=== PATIENT | male | born 1970 | race Caucasian/White ===

== ENCOUNTER → 2024-05-29 | Outpatient (CLI) | payer BC, SELFPAY ==
[2024-05-29 09:56] LABS: Hematocrit 49.4 % (40-54); Hemoglobin 16.9 g/dL (13.0-16.5); Mean Corp Hgb Conc 34.2 g/dL (32-36); Mean Corpuscular Hgb 29.9 pg (27.0-32.0); Mean Corpuscular Volume 87.3 fL (80-94); Mean Platelet Vol. 9.8 fl (6.2-12.0); Platelet Count 356 K/mm3 (150-450); RBC Distribution Width CV 13.1 % (11.6-14.6); RBC Distribution Width SD 41.8 fl (35.1-43.9); Red Blood Count 5.66 M/mm3 (4.6-6.2); White Blood Count 10.8 K/mm3 (4.4-11.0)
[2024-05-29 10:33] LABS: Anion Gap 4 (5-15); BUN 14 mg/dL (7-18); BUN/Creat Ratio 13.3 RATIO (10-20); Calcium,Total 8.9 mg/dL (8.5-10.1); Chloride 105 mmol/L (98-107); Creatinine, Serum 1.05 mg/dL (0.70-1.30); EST Glomerular Filtration Rate 78 mL/min (>60); Est Glom Filt Rate - Afr Amer 94 mL/min (>60); Glucose 147 mg/dL (74-106); PSA,Total - Annual Screen 0.65 ng/mL (0.00-4.00); Potassium 3.8 mmol/L (3.5-5.1); Sodium Level 138 mmol/L (136-145)
== END | disposition home or self-care (01) ==
PROVIDERS: PCP Family Medicine; Referring Provider Urology; Visit Provider Urology
DX: Z12.5 Encounter for screening for malignant neoplasm of prostate (principal)

== ENCOUNTER 2024-06-16 07:49 | Inpatient (IN) | payer BC, SELFPAY ==
--- NOTE | 2024-06-02 16:12 | PAT.ANE_ITS ---
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 When Was Last Pacemaker Check QUESTION #4 FULL TEXT: You/Your Family Experience fever (hyperthermia) with Anesthesia Last Oral Intake Last Oral intake: Last Oral Intake NPO since Meds taken in AM with sips of water? Meds patient instructed to take am of surgery PONV PONV - football scout: PONV - football scout Female No 06/02/24 13:12 HX of Motion Sickness No 06/02/24 13:12 HX of N/V After Surgery No 06/02/24 13:12 Non-Smoker No 06/02/24 13:12 Duration of Surgery greater Yes 06/02/24 13:12 than 60 minutes Number of Risk Factors 1 06/02/24 13:12 PONV Score Low Risk 06/02/24 13:12 Respiratory Assessment Respiratory Assessment - football scout: Respiratory Tract Infection Hx - football scout Hx Respiratory Tract Infection No 06/02/24 13:12 STOP Sleep Apnea STOP Sleep Apnea - football scout: STOP Sleep Apnea - football scout Hx Hypertension Yes: PER PT, CONTROLLED ON 06/02/24 13:12 MEDS Hx Sleep Apnea Yes 06/02/24 13:12 CPAP No 06/02/24 13:12 BIPAP No 06/02/24 13:12 Do you snore loudly (louder than talking or can be heard Do you often feel tired/ fatigued/ sleepy during daytime? Has anyone observed you stop breathing during sleep? STOP Results Positive 06/02/24 13:12 QUESTION #5 FULL TEXT : Do you snore loudly (louder than talking or can be heard through closed doors)? Tobacco Use History Tobacco Use History - football scout: Tobacco Use History - football scout Tobacco Use Smoking Status Current every day smoker 06/02/24 13:12 Hx Tobacco Use Yes 06/02/24 13:12 Years Smoking Packs Smoked per Day Smoking Cessation Date was within the last 15 years Hx Smoking Cessation Date Hx Smoking Cessation Counseling Hematologic Medial History Hematologic Hx - football scout: Hematologic Medical Hx - personnel officer Hx of Blood Transfusion No 06/02/24 13:12 Hx of Transfusion in last 3 No 06/02/24 13:12 Months Date of Last Transfusion (if within last 3 months) Ever experience any problems No 06/02/24 13:12 with transfusion(s)? Specify any problems Hx of Preganancy in last 3 N/A 06/02/24 13:12 Months Nurse Filling Out Transfusion MGRIFFITH 06/02/24 13:12 & Questions: Date: 06/02/24 06/02/24 13:12 Time: 13:14 06/02/24 13:12 Patient unable to answer at this time (ie. confused, unrespo /Reproduction History /Reproductive History - football scout: /Reproductive Hx- football scout Hx Now Gestational Age (in weeks): EDC: Hx Hx Para Hx [facility] Medical History (Updated 06/02/24 @ 13:24 by Shefali Florian) Wears glasses History of MRSA infection Alcohol use Arthritis Injury of head and neck Heartburn Smoker History of rheumatic fever History of cardiac murmur Home Medications ?Medication ?Instructions ?Recorded ?Last Taken ?Type lisinopril 20 1 tab PO DAILY 06/02/24 Unknown History mg-hydrochlorothiazide 12.5 mg tablet Allergy/AdvReac Type Severity Reaction Status Date / Time adhesive tape AdvReac RASH Verified 06/02/24 13:09 Surgical History (Updated 06/02/24 @ 13:12 by Shefali Florian) History of medial meniscus repair of right knee History of cholecystectomy Social History Smoking Status: Current every day smoker tobacco type: e-cigarettes Audit: Pertinent Findings Pertinent Findings EKG Perinent findings: May 17, 2024. Normal sinus rhythm. Incomplete right bundle branch block. Compared to EKG of October 2005 premature supraventricular complexes are no longer seen. Recommendation Anesthesia Recommendation Anesthesia recommendation: OPTIMIZED for anesthesia
[2024-06-16] VITALS (20 sets, daily range): BP systolic 108–156; BP diastolic 72–104; PULSE 76–100; RESP 14–18; TEMP 36–37.1; O2SAT 90–97; BMI 40.3; BMI 39.1
--- NOTE | 2024-06-16 05:16 | RAD_ITS ---
PROCEDURE: CHEST 1 VIEW REASON FOR EXAM: Preop. TECHNIQUE: Single frontal image of the chest. COMPARISON: None. FINDINGS: Heart and mediastinum are normal in size and configuration. The lungs are clear. Aorta is atherosclerotic and mildly tortuous. No pleural effusions, pneumothorax, or pleural thickening. The bones are unremarkable. RAD/Chest 1 View IMPRESSION: No active cardiopulmonary disease. Reading Location: [facility]
[2024-06-16] MEDS: 0.9% Normal Saline (1000mL) 1,000 ML 15 ML IV (06:16)
--- NOTE | 2024-06-16 07:25 | PCM.PRE.AN2 ---
ASA Classification* ASA Classification ASA Classification: 3 Assessment & Plan Anesthesia* Anesthesia Assessment Anesthesia Assessment: Discussed sedation and/or anesthesia options, risks, benefits, and alternatives with patient/parents/legal guardian/POA. Questions invited. The patient/parents/legal guardian/POA seems to understand and agrees to proceed with anesthesia plan. Reviewed the physical assessment, medical history, allergy history and patient home medications list prior to surgery/procedure/anesthetic and documented any changes. Performed airway and anesthesia risk assessments. Anesthesia Type Anesthesia Type: General Anesthesia Focused Assessment* Pulse Rate: 96 Blood Pressure: 125/87 Respiratory Rate: 16 Pulse Ox: 96 Airway Assessment Mouth opens: >3 cm Mallampati Score: II Focused Labs Anesthesia Preop lab: CBC WBC 10.8 K/mm3 (4.4-11.0) 05/29/24 09:05/29/24 RBC 5.66 M/mm3 (4.6-6.2) 05/29/24 09:05/29/24 Hgb 16.9 g/dL (13.0-16.5) H 05/29/24 09:25 05/29/24 Hct 49.4 % (40-54) 05/29/24 09:25 05/29/24 Plt Count 356 K/mm3 (150-450) 05/29/24 09:25 05/29/24 CHEMISTRY Potassium 3.8 mmol/L (3.5-5.1) 05/29/24 09:25 05/29/24 Sodium 138 mmol/L (136-145) 05/29/24 09:25 05/29/24 BUN 14 mg/dL (7-18) 05/29/24 09:25 05/29/24 Creatinine 1.05 mg/dL (0.70-1.30) 05/29/24 09:25 05/29/24 Glucose 147 mg/dL (74-106) H 05/29/24 09:25 05/29/24 COAG Pre-Assessment Diagnosis/Proposed Procedure Planned Operative Procedure(s): (L) Laparoscopic Robotic Radical Nephrectomy Anesthesia History 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 When Was Last Pacemaker Check QUESTION #4 FULL TEXT: You/Your Family Experience fever (hyperthermia) with Anesthesia Last Oral Intake Last Oral intake: Last Oral Intake NPO since 19:30 06/16/24 06:00 Meds taken in AM with sips of No 06/16/24 06:00 water? Meds patient instructed to take am of surgery PONV PONV - facility maintenance mechanic: PONV - facility maintenance mechanic Female No 06/02/24 13:12 HX of Motion Sickness No 06/02/24 13:12 HX of N/V After Surgery No 06/02/24 13:12 Non-Smoker No 06/02/24 13:12 Duration of Surgery greater Yes 06/02/24 13:12 than 60 minutes Number of Risk Factors 1 06/02/24 13:12 PONV Score Low Risk 06/02/24 13:12 Height & Weight Height & Weight: Anesthesia: Height & Weight Height 5 ft 8 in 06/16/24 06:00 Weight: 120.202 kg 06/16/24 06:00 Body Mass Index (BMI) 40.3 06/16/24 06:00 Respiratory Assessment Respiratory Assessment - facility maintenance mechanic: Respiratory Tract Infection Hx - facility maintenance mechanic Hx Respiratory Tract Infection No 06/02/24 13:12 STOP Sleep Apnea STOP Sleep Apnea - facility maintenance mechanic: STOP Sleep Apnea - facility maintenance mechanic Hx Hypertension Yes: PER PT, CONTROLLED ON 06/02/24 13:12 MEDS Hx Sleep Apnea Yes 06/02/24 13:12 CPAP No 06/02/24 13:12 BIPAP No 06/02/24 13:12 Do you snore loudly (louder than talking or can be heard Do you often feel tired/ fatigued/ sleepy during daytime? Has anyone observed you stop breathing during sleep? STOP Results Positive 06/02/24 13:12 QUESTION #5 FULL TEXT : Do you snore loudly (louder than talking or can be heard through closed doors)? Tobacco Use History Tobacco Use History - facility maintenance mechanic: Tobacco Use History - facility maintenance mechanic Tobacco Use Smoking Status Current every day smoker 06/02/24 13:12 Hx Tobacco Use Yes 06/02/24 13:12 Years Smoking Packs Smoked per Day Smoking Cessation Date was within the last 15 years Hx Smoking Cessation Date Hx Smoking Cessation Counseling Hematologic Medial History Hematologic Hx - facility maintenance mechanic: Hematologic Medical Hx - consulting networking engineer Hx of Blood Transfusion No 06/02/24 13:12 Hx of Transfusion in last 3 No 06/02/24 13:12 Months Date of Last Transfusion (if within last 3 months) Ever experience any problems No 06/02/24 13:12 with transfusion(s)? Specify any problems Hx of Preganancy in last 3 N/A 06/02/24 13:12 Months Nurse Filling Out Transfusion MGRIFFITH 06/02/24 13:12 & Questions: Date: 06/02/24 06/02/24 13:12 Time: 13:14 06/02/24 13:12 Patient unable to answer at this time (ie. confused, unrespo /Reproduction History /Reproductive History - facility maintenance mechanic: /Reproductive Hx- facility maintenance mechanic Hx Now Gestational Age (in weeks): EDC: Hx Hx Para Hx Section SAB Active Medications Active Medications: Current Medications Generic Name Dose Route Start Last Admin Trade Name Freq PRN Reason Stop Dose Admin Cefazolin Sodium 3 gm/ N/A 30 mls @ 600 mls/hr 06/16/24 07:30 IV 06/16/24 07:32 PREOP ONE Sodium Chloride 1,000 mls @ 15 mls/hr 06/16/24 05:35 06/16/24 06:16 IV 06/21/24 18:54 15 mls/hr .Q48H NANCY Administration Protocol PFSH Medical History Wears glasses History of MRSA infection Alcohol use Arthritis Injury of head and neck Heartburn Smoker History of rheumatic fever History of cardiac murmur Home Medications ?Medication ?Instructions ?Recorded ?Last Taken ?Type lisinopril 20 1 tab PO DAILY 06/02/24 06/15/24 History mg-hydrochlorothiazide 12.5 mg tablet Allergy/AdvReac Type Severity Reaction Status Date / Time adhesive tape AdvReac RASH Verified 06/16/24 05:54 Surgical History History of medial meniscus repair of right knee History of cholecystectomy Social History Smoking Status: Current every day smoker tobacco type: e-cigarettes Review of Systems (Anesthesia) ROS Narrative System reviewed and no additional complaints, except as documented.
--- NOTE | 2024-06-16 07:30 | KID_PTH ---
PATIENT: JAKUB SANDERS LOC: [facility] U#:[id number] AGE/SX: 54/M ROOM: [facility] [place]06/16/[address]: Dr. Dru Godwin MD : 1970 BED: 1 DIS: 06/20/2024 SPEC #: [id number] RECD: 06/16/24 10:34 STATUS: EDITH DUMONT #: [id number] LOVE: 06/16/24 07:[address]: Dru Godwin DEPT: SURGICAL PATHOLOGY RECD BY: Holden Eaton ENTERED: 06/16/24 10:51 SP TYPE: KIDNEY OTHR DR: Dr. 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 See cancer summary in the comment section. SJ.mr 06/21/2024 COMMENT KIDNEY CANCER SUMMARY Procedure - Radical nephrectomy Specimen laterality - Left Tumor site - Upper, middle and lower, >90% of the kidney. Tumor size - 12 x 10.5 x 8cm Tumor focality - Unifocal Histologic type - Clear cell renal cell carcinoma Sarcomatoid features - Not identified Rhabadoid features - Not identified Histologic grade - grade 2 (WHO/ISUP grade/Sigrid grade) Tumor necrosis - Present, focally about 10% of the tumor volume. Tumor extension - Tumor extends into perinephric adipose tissue (beyond renal capsule) Margins - Margins are uninvolved by invasive carcinoma Lymphvascular invasion - Not identified Regional lymph nodes - No lymph nodes submitted or found Distal metastases- Not applicable Pathologic findings, non-neoplastic kidney. Mild interstitial chronic inflammation. Additional pathologic findings- None PATHOLOGIC STAGE: pT3a pNx pMx The above summary is in compliance with [employer] [place] [employer] (CAP) Cancer Protocols Checklist and [place] Joint Committee on Cancer (AJCC), Staging Manual, 8th Ed. Case has been reviewed in consultation with Dr. Patrick who concurs with the above diagnosis. IDC:FA MICROSCOPIC DESCRIPTION Slides are reviewed. GROSS DESCRIPTION The specimen consists of a left kidney containing a mass and is surrounded by an irregular envelope of fibroadipose tissue. The attached fibroadipose tissue measures up to 8cm in width. Neoplasm extend into perirenal fat and is not present at the soft tissue line of resection. The specimen weighs 2500gm and measures 34 x 20 x 10 cm. The kidney measures 14 x 10 x 8cm. The mass involves most of the kidney (90%). Dissection of the renal veins, particularly those draining the area of the mass does not show intravascular presence of the neoplasm. On section, the tumorous mass is ovoid and measures 12 x 10.5 x 8 cm in diameter. It is composed of tiuajf-bti-nobhx tissue in which there is a focal area of hemorrhage, necrosis and softening. Focal area of the tumor shows feldman-white indurated cut surfaces. The tumor does not invade into the renal pelvis, renal sinus. The tumor is sharply demarcated from the renal parenchyma which appears essentially unremarkable. Satellite nodules of tumor are not present in the renal tissue. Adrenal gland is not present. A 15cm segment of urethra is present and essentially unremarkable. Global Cto sections are submitted in 20 cassettes as follows: 1- ureteral and vascular resection margins, 2- more section of ureter, 3- uninvolved kidney, 4- renal sinus, renal pelvis and adjacent kidney tissue, 5-20- tumor (cassettes 5&6 contain the tumor in the perirenal adipose tissue). Sections are submitted after additional fixation. 06/19/2024 TC:0 CPT:59187
--- NOTE | 2024-06-16 07:53 | PCM.HP.STD ---
HPI - General General Date of Service: 06/16/24 Chief Complaint: Left renal mass HPI Narrative JAKUB SANDERS, is a 54 M who presents for a radical left nephrectomy for a large left renal mass PFSH Medical History Wears glasses History of MRSA infection Alcohol use Arthritis Injury of head and neck Heartburn Smoker History of rheumatic fever History of cardiac murmur Home Medications ?Medication ?Instructions ?Recorded ?Last Taken ?Type lisinopril 20 1 tab PO DAILY 06/02/24 06/15/24 History mg-hydrochlorothiazide 12.5 mg tablet docusate sodium 100 mg capsule 100 mg PO BID #20 caps 06/16/24 Unknown Rx (Colace) oxycodone 5 mg tablet 5 mg PO Q6H PRN pain 3 days #14 06/16/24 Unknown Rx tabs Allergy/AdvReac Type Severity Reaction Status Date / Time adhesive tape AdvReac RASH Verified 06/16/24 05:54 Surgical History History of medial meniscus repair of right knee History of cholecystectomy Social History Smoking Status: Current every day smoker tobacco type: e-cigarettes Vital Signs Vital Signs Vital Signs: 06/16/24 05:55 06/16/24 06:00 06/16/24 07:26 Pulse Rate 96 96 Respiratory Rate 16 16 Respiratory Pattern Normal Blood Pressure 125/87 H 125/87 H Blood Pressure Mean 99 Blood Pressure Source Monitor Blood Pressure Position Semi-Fowlers Blood Pressure Location Right Arm Pulse Ox 96 96 Oxygen Delivery Method Room Air Weight Weight: 120.202 kg Body Mass Index (BMI) 40.3 Results Lab / Micro Data Labs: Laboratory Results - last 24 hr 06/16/24 06:10: Blood Type Cancelled, Antibody Screen Cancelled 06/16/24 06:37: Blood Type O POSITIVE, Antibody Screen NEGATIVE Imaging Radiology Impression Chest X-Ray 06/16/24 05:16 IMPRESSION: No active cardiopulmonary disease. Reading Location: [facility]
--- NOTE | 2024-06-16 07:53 | PCM.DC ---
Discharge Instructions Diet Discharge Diet: No restrictions DC O2, CPAP, BIPAP needs Home O2 Discharge instructions: No Dressing / Incision Discharge Activity: Return to Normal Activity and May Not Drive (while taking narcotic pain medications.) Additional Activity Instructions:: no lifting Dressing / Incision Call your doctor if you observe: Fever of 101 or Higher Suture Line Care: Avoid Pulling/Pushing and Avoid Pinching/Bending Follow Up Care Please Follow Up With: Dru Godwin MD When: Call [phone] for an appointment Test Results: Test results from this visit will be discussed in further detail at your follow-up appointment, if applicable. Discharge Plan Admission Primary Reason for Your Visit: left radical nephrectomy Attending Provider: Dru Godwin Primary Care Provider: Jordon Lowry Instructions Print Language: Cambodian Discharge Orders/Prescriptions Prescriptions: New oxycodone 5 mg tablet 5 mg PO Q6H PRN (Reason: pain) 3 Days Qty: 14 0RF docusate sodium [Colace] 100 mg capsule 100 mg PO BID Qty: 20 0RF No Action lisinopril-hydrochlorothiazide 20-12.5 mg tablet 1 tab PO DAILY Other Ambulatory Orders: Chest PA and Lateral (Routine) Timeframe: 20240616 Facility: [facility] - Location: [facility] Ordered By: Dr. Dru Godwin Referrals / Follow Up: Dru Godwin MD [Med Staff - Active Staff] - Jordon Lowry MD [Primary Care Provider] - Disposition Disposition (needs filled in before D/C Order can be placed): Home, Self Care
[2024-06-16] MEDS: Cefazolin 3 GM in Syringe 1 EACH IV (07:55)
[2024-06-16] MEDS: Bupivacaine Mpf 0.5% 30 ML VIAL (08:15)
--- NOTE | 2024-06-16 10:22 | PCM.POST.ANE ---
Anesthesia: Postop Eval I Current Vital Signs Temperature: 98.6 F Pulse Rate: 82 Blood Pressure: 113/85 Respiratory Rate: 16 Pulse Ox: 96 Oxygen Delivery Method: Simple Mask Oxygen Flow Rate (L/min): 6 Assessment Airway patent: Yes Spontaneous unlabored respirations: Yes Mental status: Awake and Calm nausea: No Vomiting: No Anesthesia Complication: No Fluid Hydration Crystalloid volume administer (ml): 1,600 Total IV fluid infused: 1,600 Progress Note Anesthesia document: Postop Eval 1 completed: Yes
--- NOTE | 2024-06-16 10:34 | OP.PCM_ITS ---
Operative Report (Standard) Operative Information Date of Procedure: 06/16/24 Pre-Operative Diagnosis: Large left renal mass Post-Operative Diagnosis: The same Surgery/Procedure Performed: Left radical nephrectomy watch crystal edge grinder: Yes Truck Driver Helper: Paolo Philippe Tasks completed by account assistant: Opening, Closing, Opening & closing, Harvesting grafts, Dissecting tissue, Removing tissue, Implanting device, Altering tissue, Insert Trochanter, Hemostasis: Clamp, Hemostasis: Tie, Hemostasis: Electrocautery, Trocar, Retracting and Other Type of Anesthesia: General RN Documented Start/Stop Times: Operation Date: 06/16/24 07:30 Case Time Into Pre-Op 06/16/24 05:32 Out of Pre-Op 06/16/24 07:29 Anesthesia Start 06/16/24 07:35 Into Room 06/16/24 07:35 Procedure Start 06/16/24 08:14 Procedure Start Time: 08:14 Procedure Stop Time: 10:36 Select all DRAINS/GRAFTS/IMPLANTS that apply: Drains Drain details: denise Estimated Blood Loss: 80cc Specimen collected: Yes Description of specimen(s) removed: left renal mass Description of surgery: 54-year-old male with a very large left renal mass presents today for left radical nephrectomy. Patient was taken back to the operating room after smooth induction of anesthesia he was placed in lateral position Denise catheter was in place we then the abdomen was prepped and draped in usual sterile fashion placed my ports into the abdomen after the CO2 gas was obtained for the pneumoperitoneum we then docked the robot and proceeded with the dissection I then reflected the fat and mid mesenteric fat and colon off of the kidney this was an extremely large kidney made the dissection very difficult. Also patient was very obese. And also the mass was really large. After dissecting the colon off the kidney then I used a Raptor to retract the kidney cephalad and then I dissected inferior I found the tail of the drought's fascia got underneath the tail started working my way underneath drought's fascia until I encountered the hilum I then encountered the renal vein it was a branching renal vein and then it behind the vein there was a large renal artery and in front of vein there is a small renal artery I first clipped a small renal artery and from the vein and then clipped and ligated the large renal artery and then finally we clipped and likely the renal vein we then used a stapler to clip and staple underneath the gonadal and also we stapled underneath the adrenal so the adrenal went with the specimen we did not spare the adrenal and then we dissected underneath the kidney off the lateral sidewall and then dissected the entire kidney free up the lateral sidewall. Using copious amount of clips and cauterization to control bleeding. Finally the kidney was completely freed up the robot was undocked I tested the put push to put the renal mass into Endo Catch bag but the mass was so big was not able to get the Endo Catch bag so ended up just extending the incision fairly large in the lower port Eek and then manually extracted the tumor from the abdomen we then closed the extraction site and to 2 layers with 0 Vicryl I then closed the Benji Sandhu stitch to close the air seal port. And then all the other ports were removed we looked back in the abdomen there was no signs of bleeding from the resection site of the large tumor but blood loss about 80 cc patient's anesthetic is currently being reversed and patient is currently stable under anesthesia. Surgical Findings: v large left renal mass removed. Complications Complications: No Admit VTE Documentation VTE Present on Admission: No VTE Mechan Device Prophylaxis: SCD's VTE Pharm Prophylaxis ordered?: No
--- NOTE | 2024-06-16 12:12 | PCM.POSTANE2 ---
Anesthesia Postop Eval I Sum Postop Eval Completion status Anesthesia document: Postop Eval 1 completed: Yes Anesthesia Postop Eval I Summary Anesthesia Postop Eval I Summary: Anesthesia Postop Eval I: Assessment Summary Airway patent Yes 06/16/24 11:23 LAP CUTTER TRUER OPERATOR.[email or web address] Spontaneous unlabored Yes 06/16/24 11:23 LAP CUTTER TRUER OPERATOR.[email or web address] respirations Mental status Awake,Calm 06/16/24 11:23 LAP CUTTER TRUER OPERATOR.[email or web address] nausea No 06/16/24 11:23 LAP CUTTER TRUER OPERATOR.[email or web address] Vomiting No 06/16/24 11:23 LAP CUTTER TRUER OPERATOR.[email or web address] Anesthesia Postop Eval I: Fluid Summary Crystalloid volume administer 1,600 06/16/24 11:23 LAP CUTTER TRUER OPERATOR.NFOR (ml) Colloids volume administered ( ml) Blood Product volume administered (ml) Total IV fluid infused 1,600 06/16/24 11:23 LAP CUTTER TRUER OPERATOR.[email or web address] Anesthesia Postop Eval I: Summary Notes Anesthesia Complication No 06/16/24 11:23 LAP CUTTER TRUER OPERATOR.[email or web address] Anesthesia Complication Comment: Post-operative progress note Anesthesia: Postop Eval II Evaluation Mental status: Awake Pain Level: 0 nausea: No Vomiting: No
--- NOTE | 2024-06-16 12:12 | POSTOPAN2_ITS ---
Anesthesia Postop Eval I Sum Postop Eval Completion status Anesthesia document: Postop Eval 1 completed: Yes Anesthesia Postop Eval I Summary Anesthesia Postop Eval I Summary: Anesthesia Postop Eval I: Assessment Summary Airway patent Yes 06/16/24 11:23 RN [email or web address] Spontaneous unlabored Yes 06/16/24 11:23 RN [email or web address] respirations Mental status Awake,Calm 06/16/24 11:23 RN [email or web address] nausea No 06/16/24 11:23 RN [email or web address] Vomiting No 06/16/24 11:23 RN [email or web address] Anesthesia Postop Eval I: Fluid Summary Crystalloid volume administer 1,600 06/16/24 11:23 RN [email or web address] (ml) Colloids volume administered ( ml) Blood Product volume administered (ml) Total IV fluid infused 1,600 06/16/24 11:23 RN [email or web address] Anesthesia Postop Eval I: Summary Notes Anesthesia Complication No 06/16/24 11:23 RN [email or web address] Anesthesia Complication Comment: Post-operative progress note Anesthesia: Postop Eval II Evaluation Mental status: Awake Pain Level: 0 nausea: No Vomiting: No
[2024-06-16 12:49] LABS: Absolute Lymphocyte Count 1.17 X10^3/uL (0.83-4.51); Absolute Neutrophil Count 19.7 X10^3/uL (2.0-7.7); Basophil# 0.06 X10^3/uL; Basophil% 0.3 % (0-1); Eosinophil# 0.01 X10^3/uL; Hematocrit 47.4 % (40-54); Hemoglobin 15.4 g/dL (13.0-16.5); Lymphocyte # 1.17 X10^3/ul (0.83-4.51); Lymphocyte % 5.4 % (19-41); Mean Corp Hgb Conc 32.5 g/dL (32-36); Mean Corpuscular Hgb 29.4 pg (27.0-32.0); Mean Corpuscular Volume 90.5 fL (80-94); Mean Platelet Vol. 10.6 fl (6.2-12.0); Monocyte# 0.43 X10^3/uL; NRBC Flagged by Analyzer 0 % (0-5); Neutrophil # 19.69 X10^3/uL (2.7-7.7); Neutrophil % 91.6 % (47-70); Platelet Count 306 K/mm3 (150-450); RBC Distribution Width CV 13.2 % (11.6-14.6); RBC Distribution Width SD 44.3 fl (35.1-43.9); Red Blood Count 5.24 M/mm3 (4.6-6.2); White Blood Count 21.5 K/mm3 (4.4-11.0)
[2024-06-16 12:50] LABS: Anion Gap 7 (5-15); BUN 13 mg/dL (7-18); BUN/Creat Ratio 9.4 RATIO (10-20); Calcium,Total 8.2 mg/dL (8.5-10.1); Chloride 109 mmol/L (98-107); Creatinine, Serum 1.39 mg/dL (0.70-1.30); EST Glomerular Filtration Rate 56 mL/min (>60); Est Glom Filt Rate - Afr Amer 68 mL/min (>60); Estimated Creatinine Clearance 75.69 ml/min; Glucose 195 mg/dL (74-106); Potassium 3.9 mmol/L (3.5-5.1); Sodium Level 139 mmol/L (136-145)
[2024-06-16] MEDS: oxyCODONE 5 MG Tablet PO ×2 (13:47→20:16)
[2024-06-16] MEDS: 0.9% Normal Saline (1000mL) 1,000 ML 125 ML IV ×2 (13:51→20:18)
[2024-06-16] MEDS: Acetaminophen 325 MG Tablet 650 MG PO (17:52)
[2024-06-16] MEDS: Morphine 2 MG/ML Syringe IV (17:59)
[2024-06-16] MEDS: Docusate Sodium 100 MG Capsule 200 MG PO (20:16)
[2024-06-17 01:28] VITALS: BP 135/86; PULSE 99; RESP 20; TEMP 36.6; O2SAT 94
[2024-06-17] MEDS: Acetaminophen 325 MG Tablet 650 MG PO ×4 (01:36→22:38)
[2024-06-17] MEDS: oxyCODONE 5 MG Tablet PO ×4 (02:29→22:38)
[2024-06-17] MEDS: 0.9% Normal Saline (1000mL) 1,000 ML 125 ML IV ×3 (05:34→21:19)
[2024-06-17 05:38] VITALS: BP 120/90; PULSE 75; RESP 20; TEMP 36.6; O2SAT 97
[2024-06-17 07:10] LABS: Absolute Lymphocyte Count 2.19 X10^3/uL (0.83-4.51); Absolute Neutrophil Count 12.6 X10^3/uL (2.0-7.7); Basophil# 0.05 X10^3/uL; Basophil% 0.3 % (0-1); Hematocrit 44.9 % (40-54); Hemoglobin 14.8 g/dL (13.0-16.5); Lymphocyte # 2.19 X10^3/ul (0.83-4.51); Lymphocyte % 13.1 % (19-41); Mean Corpuscular Hgb 29.7 pg (27.0-32.0); Mean Platelet Vol. 10.7 fl (6.2-12.0); Monocyte# 1.78 X10^3/uL; Monocyte% 10.6 % (0-10); NRBC Flagged by Analyzer 0 % (0-5); Neutrophil # 12.57 X10^3/uL (2.7-7.7); Neutrophil % 75.2 % (47-70); POSITIVE DIFFERENTIAL YES; Platelet Count 258 K/mm3 (150-450); RBC Distribution Width CV 13.2 % (11.6-14.6); RBC Distribution Width SD 43.5 fl (35.1-43.9); Red Blood Count 4.99 M/mm3 (4.6-6.2); White Blood Count 16.7 K/mm3 (4.4-11.0)
[2024-06-17 07:19] LABS: Differential Indicated SCAN CRITERIA MET
[2024-06-17 07:23] LABS: Anion Gap 6 (5-15); BUN 13 mg/dL (7-18); BUN/Creat Ratio 9.3 RATIO (10-20); Calcium,Total 8.1 mg/dL (8.5-10.1); Chloride 109 mmol/L (98-107); EST Glomerular Filtration Rate 56 mL/min (>60); Est Glom Filt Rate - Afr Amer 68 mL/min (>60); Estimated Creatinine Clearance 76.31 ml/min; Glucose 130 mg/dL (74-106); Potassium 4.4 mmol/L (3.5-5.1); Sodium Level 139 mmol/L (136-145)
--- NOTE | 2024-06-17 07:39 | PN.URO_ITS ---
Subjective Subjective 54-year-old male status post left laparoscopic radical nephrectomy for large renal mass. Patient's BMI is 40 he had a large extraction site in the lower abdomen with large mass high risk for getting the hernia recommend he wear abdominal binder. We can DC his [place] and will continue to follow good diet and he can ambulate today. Objective Data Objective Data Vital Signs: Vital Signs Temp Pulse Resp BP Pulse Ox O2 Del Method O2 Flow Rate 97.9 F 75 20 H 120/90 H 97 Room Air 2 06/17/24 05:38 06/17/24 05:38 06/17/24 05:38 06/17/24 05:38 06/17/24 05:38 06/17/24 05:38 06/16/24 17:27 Oxygen Flow Rate (L/min) 2 Oxygen Delivery Method Room Air Weight: 120.2 kg Body Mass Index (BMI) 39.1 Intake & Output: Intake and Output for Last 24 Hours 06/15/24 06/16/24 06/17/24 23:59 23:59 23:59 Intake Total 836.25 / 836.25 1667.75 / 1667.75 Output Total 922 / 922 1000 / 1000 Balance -85.75 / -85.75 667.75 / 667.75 Lab / Micro Data 06/17/24 06:31 06/17/24 06:31 Labs: Laboratory Results - last 24 hr 06/16/24 12:08: WBC 21.5 H, RBC 5.24, Hgb 15.4, Hct 47.4, MCV 90.5, MCH 29.4, MCHC 32.5, RDW Std Deviation 44.3 H, RDW Coeff of Gabby 13.2, Plt Count 306, MPV 10.6, Immature Gran % (Auto) 0.700, Neut % (Auto) 91.6 H, Lymph % (Auto) 5.4 L, [place] % (Auto) 2.0, Eos % (Auto) 0.0, Baso % (Auto) 0.3, Absolute Neuts (auto) 19.7 H, Absolute Lymphs (auto) 1.17, Nucleated RBC % 0, Sodium 139, Potassium 3.9, Chloride 109 H, Carbon Dioxide 24.0, Anion Gap 7, BUN 13, Creatinine 1.39 H , Estim Creat Clear Calc 75.69, Est GFR (MDRD) Af Amer 68, Est GFR (MDRD) Non-Af 56 L, BUN/Creatinine Ratio 9.4 L, Glucose 195 H, Calcium 8.2 L 06/17/24 06:31: WBC 16.7 H, RBC 4.99, Hgb 14.8, Hct 44.9, MCV 90.0, MCH 29.7, MCHC 33.0, RDW Std Deviation 43.5, RDW Coeff of Gabby 13.2, Plt Count 258, MPV 10.7, Immature Gran % (Auto) 0.800, Neut % (Auto) 75.2 H, Lymph % (Auto) 13.1 L, [place] % (Auto) 10.6 H, Eos % (Auto) 0.0, Baso % (Auto) 0.3, Absolute Neuts (auto) 12.6 H, Absolute Lymphs (auto) 2.19, Nucleated RBC % 0, Sodium 139, Potassium 4.4, Chloride 109 H, Carbon Dioxide 24.0, Anion Gap 6, BUN 13, Creatinine 1.40 H , Estim Creat Clear Calc 76.31, Est GFR (MDRD) Af Amer 68, Est GFR (MDRD) Non-Af 56 L, BUN/Creatinine Ratio 9.3 L, Glucose 130 H, Calcium 8.1 L
[2024-06-17 08:03] LABS: Platelet Estimate A (ADEQ)
[2024-06-17 08:35] VITALS: BP 164/101; PULSE 77; RESP 15; TEMP 36.3; O2SAT 96
[2024-06-17] MEDS: hydroCHLOROthiazide 12.5mg 12.5 MG PO (08:39)
[2024-06-17] MEDS: Docusate Sodium 100 MG Capsule 200 MG PO ×2 (08:39→21:19)
[2024-06-17] MEDS: Lisinopril 20 MG Tablet PO (08:39)
[2024-06-17 14:00] VITALS: BP 159/112; PULSE 91; RESP 15; TEMP 36.7; O2SAT 95
--- NOTE | 2024-06-17 14:43 | CASEMGMT ---
DANIEL MURO Assessment: Face to Face with pt for initial transition planning/care coordination assessment. RN BHASKAR introduced self and role at [facility], pt voices understanding and consents to assessment. Pt is A&O x4 and answers all questions appropriately at this time. Pt sitting up in chair in no distress. Care providers, pharmacy, and demographics verified/updated. Admitting Dx: Laproscopic Radical Nephrectomy PCP: Alen Specialists: Denies Preferred Pharmacy: [facility] Insurance: [place] Prescription Benefit: yes LNOK: Nadeen ALTMAN; Brother, Brooks Living Arrangements: Pt lives with son in a 1 level home with 4 steps to enter. ADLs: Pt states I at baseline Transportation: Pt drives self and denies concerns with transportation. DME: Denies HHC/SNF: Denies Hx of. Pt states no concerns with going home at time of dc. Pt states no further concerns/needs. CM to follow. Advised pt to ask CM if any further question/concerns/needs arise, voices understanding. Pt Goal: Home Plan: Home with family support Ariela SANCHEZ CM
[2024-06-17 21:07] VITALS: BP 155/104; PULSE 96; RESP 20; TEMP 37.1; O2SAT 94
[2024-06-17 21:09] VITALS: BP 155/104; PULSE 97; RESP 20; TEMP 37.1; O2SAT 94
[2024-06-17] MEDS: Morphine 2 MG/ML Syringe IV (21:19)
[2024-06-18] VITALS (8 sets, daily range): BP systolic 141–180; BP diastolic 80–123; PULSE 88–100; RESP 16–20; TEMP 36.6–36.9; O2SAT 90–100
[2024-06-18] MEDS: Acetaminophen 325 MG Tablet 650 MG PO ×3 (05:45→23:26)
[2024-06-18] MEDS: oxyCODONE 5 MG Tablet PO ×4 (05:45→23:25)
[2024-06-18 06:11] LABS: Absolute Lymphocyte Count 2.97 X10^3/uL (0.83-4.51); Absolute Neutrophil Count 9.3 X10^3/uL (2.0-7.7); Basophil# 0.07 X10^3/uL; Basophil% 0.5 % (0-1); Eosinophil# 0.06 X10^3/uL; Eosinophils% 0.4 % (0-5); Hematocrit 43.7 % (40-54); Lymphocyte # 2.97 X10^3/ul (0.83-4.51); Mean Corpuscular Hgb 29.2 pg (27.0-32.0); Mean Corpuscular Volume 91.2 fL (80-94); Mean Platelet Vol. 10.3 fl (6.2-12.0); Monocyte# 1.59 X10^3/uL; Monocyte% 11.3 % (0-10); NRBC Flagged by Analyzer 0 % (0-5); Neutrophil # 9.34 X10^3/uL (2.7-7.7); Neutrophil % 66.2 % (47-70); POSITIVE DIFFERENTIAL YES; Platelet Count 286 K/mm3 (150-450); RBC Distribution Width CV 13.2 % (11.6-14.6); RBC Distribution Width SD 44.9 fl (35.1-43.9); Red Blood Count 4.79 M/mm3 (4.6-6.2); White Blood Count 14.1 K/mm3 (4.4-11.0)
[2024-06-18 06:40] LABS: Anion Gap 6 (5-15); BUN 11 mg/dL (7-18); BUN/Creat Ratio 9.2 RATIO (10-20); Calcium,Total 8.2 mg/dL (8.5-10.1); Chloride 106 mmol/L (98-107); Creatinine, Serum 1.19 mg/dL (0.70-1.30); EST Glomerular Filtration Rate 68 mL/min (>60); Est Glom Filt Rate - Afr Amer 82 mL/min (>60); Estimated Creatinine Clearance 89.78 ml/min; Glucose 128 mg/dL (74-106); Potassium 3.6 mmol/L (3.5-5.1); Sodium Level 139 mmol/L (136-145)
[2024-06-18 06:42] LABS: Differential Indicated SCAN CRITERIA MET
[2024-06-18 07:14] LABS: Differential Comment SCANNED
[2024-06-18 07:15] LABS: Reactive Lymphocyte 2+
--- NOTE | 2024-06-18 09:34 | PCM.PN.GU ---
Subjective Subjective status post left radical nephrectomy still has not passed gas tolerating full liquid diet but still feels distended not ready to go home yet will give him a Dulcolax suppository creatinine is okay hemoglobin stable white count still little high but not superhigh look like is doing okay still awaiting bowel gas function and improvement in pain before going home. Objective Data Objective Data Vital Signs: Vital Signs Temp Pulse Resp BP Pulse Ox O2 Del Method O2 Flow Rate 98.1 F 94 16 167/107 H 94 Room Air 2 06/18/24 05:34 06/18/24 05:34 06/18/24 05:34 06/18/24 05:34 06/18/24 07:10 06/18/24 07:10 06/16/24 17:27 Oxygen Flow Rate (L/min) 2 Oxygen Delivery Method Room Air Weight: 120.2 kg Body Mass Index (BMI) 39.1 Intake & Output: Intake and Output for Last 24 Hours 06/16/24 06/17/24 06/18/24 23:59 23:59 23:59 Intake Total 836.25 / 836.25 3636.50 / 3636.50 1000 / 1000 Output Total 922 / 922 1450 / 1450 450 / 450 Balance -85.75 / -85.75 2186.50 / 2186.50 550 / 550 Lab / Micro Data 06/18/24 04:46 06/18/24 04:46 Labs: Laboratory Results - last 24 hr 06/18/24 04:46: WBC 14.1 H, RBC 4.79, Hgb 14.0, Hct 43.7, MCV 91.2, MCH 29.2, MCHC 32.0, RDW Std Deviation 44.9 H, RDW Coeff of Gabby 13.2, Plt Count 286, MPV 10.3, Immature Gran % (Auto) 0.600, Neut % (Auto) 66.2, Lymph % (Auto) 21.0, [place] % (Auto) 11.3 H, Eos % (Auto) 0.4, Baso % (Auto) 0.5, Absolute Neuts (auto) 9.3 H, Absolute Lymphs (auto) 2.97, Nucleated RBC % 0, Differential Comment SCANNED, Diff Path Review May foll, Reactive Lymphocytes 2+, Sodium 139, Potassium 3.6, Chloride 106, Carbon Dioxide 27.0, Anion Gap 6, BUN 11, Creatinine 1.19, Estim Creat Clear Calc 89.78, Est GFR (MDRD) Af Amer 82, Est GFR (MDRD) Non-Af 68, BUN/Creatinine Ratio 9.2 L, Glucose 128 H, Calcium 8.2 L
[2024-06-18] MEDS: hydroCHLOROthiazide 12.5mg 12.5 MG PO (10:15)
[2024-06-18] MEDS: Docusate Sodium 100 MG Capsule 200 MG PO ×2 (10:15→22:50)
[2024-06-18] MEDS: Lisinopril 20 MG Tablet PO (10:16)
[2024-06-18] MEDS: Morphine 2 MG/ML Syringe IV (14:38)
[2024-06-19] MEDS: 0.9% Saline Lock 10 ML Syringe IV ×3 (03:06→12:52)
[2024-06-19] MEDS: Ondansetron 4 MG/2 ML Vial IV ×2 (03:06→12:52)
[2024-06-19] MEDS: Bisacodyl 10 MG Suppository RC (03:06)
[2024-06-19 03:12] VITALS: BP 155/111; PULSE 103; RESP 18; TEMP 36.8; O2SAT 98
[2024-06-19] MEDS: Metoclopramide 10 MG/2 ML Vial IV (03:38)
--- NOTE | 2024-06-19 07:30 | PCM.PN.GU ---
Subjective Subjective Postop day #3 status post left radical nephrectomy for a very large renal mass, postop course is going fairly well he is now passing gas has not had bowel movements we can advance to regular diet patient feels hungry. Only thing holding up his discharge is his blood pressure he has been consistently running a higher blood pressure 155/111. I am can increase his lisinopril from 20-40, and increase his hydrochlorothiazide from 12.5 to 25 mg. I did put a consult in for medical see him to help manage his blood pressure we will send him home once his blood pressure is under better control. Objective Data Objective Data Vital Signs: Vital Signs Temp Pulse Resp BP Pulse Ox O2 Del Method O2 Flow Rate 98.2 F 103 H 18 155/111 H 98 Room Air 2 06/19/24 03:12 06/19/24 03:12 06/19/24 03:12 06/19/24 03:12 06/19/24 03:12 06/19/24 03:12 06/16/24 17:27 Oxygen Flow Rate (L/min) 2 Oxygen Delivery Method Room Air Weight: 120.2 kg Body Mass Index (BMI) 39.1 Intake & Output: Intake and Output for Last 24 Hours 06/17/24 06/18/24 06/19/24 23:59 23:59 23:59 Intake Total 3636.50 / 3636.50 1800 / 1800 Output Total 1450 / 1450 450 / 450 Balance 2186.50 / 2186.50 1350 / 1350 Lab / Micro Data 06/18/24 04:46 06/18/24 04:46
[2024-06-19 08:02] LABS: Absolute Lymphocyte Count 2.81 X10^3/uL (0.83-4.51); Absolute Neutrophil Count 13.4 X10^3/uL (2.0-7.7); Basophil# 0.09 X10^3/uL; Basophil% 0.5 % (0-1); Eosinophil# 0.02 X10^3/uL; Eosinophils% 0.1 % (0-5); Hematocrit 48.4 % (40-54); Hemoglobin 15.8 g/dL (13.0-16.5); Lymphocyte # 2.81 X10^3/ul (0.83-4.51); Lymphocyte % 15.7 % (19-41); Mean Corp Hgb Conc 32.6 g/dL (32-36); Mean Corpuscular Hgb 29.3 pg (27.0-32.0); Mean Corpuscular Volume 89.8 fL (80-94); Mean Platelet Vol. 10.6 fl (6.2-12.0); Monocyte# 1.41 X10^3/uL; Monocyte% 7.9 % (0-10); NRBC Flagged by Analyzer 0 % (0-5); Neutrophil # 13.42 X10^3/uL (2.7-7.7); Neutrophil % 74.8 % (47-70); Platelet Count 368 K/mm3 (150-450); RBC Distribution Width CV 12.9 % (11.6-14.6); RBC Distribution Width SD 42.5 fl (35.1-43.9); Red Blood Count 5.39 M/mm3 (4.6-6.2); White Blood Count 17.9 K/mm3 (4.4-11.0)
[2024-06-19 08:29] LABS: Anion Gap 8 (5-15); BUN 11 mg/dL (7-18); BUN/Creat Ratio 9.2 RATIO (10-20); Chloride 100 mmol/L (98-107); EST Glomerular Filtration Rate 67 mL/min (>60); Est Glom Filt Rate - Afr Amer 81 mL/min (>60); Estimated Creatinine Clearance 89.03 ml/min; Glucose 121 mg/dL (74-106); Potassium 3.5 mmol/L (3.5-5.1); Sodium Level 136 mmol/L (136-145)
[2024-06-19 08:55] VITALS: BP 143/90; PULSE 103; RESP 16; TEMP 37.1; O2SAT 94
[2024-06-19] MEDS: oxyCODONE 5 MG Tablet PO ×3 (09:01→22:00)
[2024-06-19] MEDS: hydroCHLOROthiazide 25 MG Tablet PO (09:02)
[2024-06-19] MEDS: Lisinopril 40 MG Tablet PO (09:02)
[2024-06-19] MEDS: Docusate Sodium 100 MG Capsule 200 MG PO ×2 (09:03→21:08)
--- NOTE | 2024-06-19 09:09 | PCM.PN.HOSP ---
Reason for Visit Reason for Visit: Diagnoses Other specified disorders of kidney and ureter (06/16/24) Subjective Subjective Patient is a 54-year-old gentleman who underwent left radical nephrectomy on account of large left renal mass by Dr Godwin on 06/16/2024. Patient was found to have elevated blood pressure following the procedure. The hospitalist service consulted to assist with management. Objective Data Objective Data Vital Signs: Vital Signs Temp Pulse Resp BP Pulse Ox O2 Del Method O2 Flow Rate 98.8 F 103 H 16 143/90 H 94 Room Air 2 06/19/24 08:55 06/19/24 08:55 06/19/24 08:55 06/19/24 08:55 06/19/24 08:55 06/19/24 08:55 06/16/24 17:27 Oxygen Flow Rate (L/min) 2 Oxygen Delivery Method Room Air Weight: 120.2 kg Body Mass Index (BMI) 39.1 Intake & Output: Intake and Output for Last 24 Hours 06/17/24 06/18/24 06/19/24 23:59 23:59 23:59 Intake Total 3636.50 / 3636.50 1800 / 1800 Output Total 1450 / 1450 450 / 450 Balance 2186.50 / 2186.50 1350 / 1350 Lab / Micro Data 06/19/24 06:40 06/19/24 06:40 Labs: Laboratory Results - last 24 hr 06/19/24 06:40: WBC 17.9 H, RBC 5.39, Hgb 15.8, Hct 48.4, MCV 89.8, MCH 29.3, MCHC 32.6, RDW Std Deviation 42.5, RDW Coeff of Gabby 12.9, Plt Count 368, MPV 10.6, Immature Gran % (Auto) 1.000 H, Neut % (Auto) 74.8 H, Lymph % (Auto) 15.7 L, [place] % (Auto) 7.9, Eos % (Auto) 0.1, Baso % (Auto) 0.5, Absolute Neuts (auto) 13.4 H, Absolute Lymphs (auto) 2.81, Nucleated RBC % 0, Sodium 136, Potassium 3.5, Chloride 100, Carbon Dioxide 27.0, Anion Gap 8, BUN 11, Creatinine 1.20, Estim Creat Clear Calc 89.03, Est GFR (MDRD) Af Amer 81, Est GFR (MDRD) Non-Af 67, BUN/Creatinine Ratio 9.2 L, Glucose 121 H, Calcium 9.0 Physical Exam Narrative GENERAL: cooperative HEENT: Atraumatic; normocephalic EYES; Anicteric, Normal Conjunctiva NECK; supple, normal thyroid, RESPIRATORY: Diminished to auscultation CARDIOVASCULAR: Regular S1 S2, GI: soft, normoactive bowel sounds, : Surgical incision left lower quadrant EXTREMITIES: No edema, no clubbing, MUSCULOSKELETAL: no muscle wasting NEURO: Awake; no lateralizing signs. SKIN: No Rash PSYCH; Flat affect Assessment & Plan Assessment/Plan (1) Left renal mass: (2) Essential (primary) hypertension: (3) BMI 39.0-39.9,adult: PLAN: Plan Patient is a 54-year-old gentleman who underwent left radical nephrectomy on account of large left renal mass by Dr Godwin on 06/16/2024. Patient was found to have elevated blood pressure following the procedure. The hospitalist service consulted to assist with management. 1. Status post left radical nephrectomy ? On 06/06/2024 on account of large left renal mass by Dr Godwin 2. Elevated blood pressure ? Patient patient was on lisinopril and HCTZ at home, resumed added hydralazine as needed. Blood pressure greater than 1 6 3. Class II obesity with BMI of 39.1 ? Complicating care weight loss advised 4. DVT prophylaxis Defer to primary service. Did encourage patient to ambulate as much as possible Time spent in the patient's overall evaluation,decision-making process, review of diagnostic data, adjustment of management, discussion with other providers, nursing nursing and ancillary staff involved in patient's care documentation,35 Minutes Charges/Coding Visit Charges Inpatient E&M: 34011 Subs Hosp L2
[2024-06-19 14:05] LABS: Pathologist Review Reviewed
[2024-06-19 14:06] LABS: Pathologist Review Reviewed
[2024-06-19 16:14] VITALS: BP 125/87; PULSE 106; RESP 16; TEMP 36.9; O2SAT 95
[2024-06-19 21:45] VITALS: BP 121/84; PULSE 116; RESP 16; TEMP 37; O2SAT 95
[2024-06-20 00:30] VITALS: BP 123/74; PULSE 108; RESP 20; TEMP 36.8; O2SAT 94
--- NOTE | 2024-06-20 07:24 | PCM.PN.GU ---
Subjective Subjective Status post nephrectomy on the left side blood pressure control was very high so discharge was held now the blood pressure is much better he will go home on his blood pressure medications I recommended the patient monitor his blood pressure at home and follow-up with his primary care physician. He will be discharged today. Objective Data Objective Data Vital Signs: Vital Signs Temp Pulse Resp BP Pulse Ox O2 Del Method O2 Flow Rate 98.2 F 108 H 20 H 123/74 H 94 Room Air 2 06/20/24 00:30 06/20/24 00:30 06/20/24 00:30 06/20/24 00:30 06/20/24 00:30 06/20/24 00:30 06/16/24 17:27 Oxygen Flow Rate (L/min) 2 Oxygen Delivery Method Room Air Weight: 120.2 kg Body Mass Index (BMI) 39.1 Intake & Output: Intake and Output for Last 24 Hours 06/18/24 06/19/24 06/20/24 23:59 23:59 23:59 Intake Total 1800 / 1800 440 / 440 240 / 240 Output Total 450 / 450 Balance 1350 / 1350 440 / 440 240 / 240 Lab / Micro Data 06/19/24 06:40 06/19/24 06:40 Labs: Laboratory Results - last 24 hr 06/17/24 06:31: Diff Path Review Reviewed 06/18/24 04:46: Diff Path Review Reviewed 06/19/24 06:40: WBC 17.9 H, RBC 5.39, Hgb 15.8, Hct 48.4, MCV 89.8, MCH 29.3, MCHC 32.6, RDW Std Deviation 42.5, RDW Coeff of Gabby 12.9, Plt Count 368, MPV 10.6, Immature Gran % (Auto) 1.000 H, Neut % (Auto) 74.8 H, Lymph % (Auto) 15.7 L, [place] % (Auto) 7.9, Eos % (Auto) 0.1, Baso % (Auto) 0.5, Absolute Neuts (auto) 13.4 H, Absolute Lymphs (auto) 2.81, Nucleated RBC % 0, Sodium 136, Potassium 3.5, Chloride 100, Carbon Dioxide 27.0, Anion Gap 8, BUN 11, Creatinine 1.20, Estim Creat Clear Calc 89.03, Est GFR (MDRD) Af Amer 81, Est GFR (MDRD) Non-Af 67, BUN/Creatinine Ratio 9.2 L, Glucose 121 H, Calcium 9.0
--- NOTE | 2024-06-20 07:25 | DS.PCM_ITS ---
Providers Date of Admission: 06/16/24 Date of Discharge: 06/20/24 Primary Care Physician: Dr. Jordon Lowry MD Consultations 06/19/24 07:28 Consult: Hospitalist Routine Consulting Provider: Jamal Olivas Reason for Consult: high blood pressure EMERGENT Consult: No MD Notified: Yes Date Notified: 06/19/24 Time Notified: 08:03 Method of Notification: Text Reason For Visit: Laparoscopic Robotic Radical Nephrectomy left Diagnosis Discharge Diagnosis (1) Left renal mass: Status: Acute Code(s): N28.89 - Other specified disorders of kidney and ureter (2) Essential (primary) hypertension: Status: Acute Code(s): I10 - Essential (primary) hypertension (3) BMI 39.0-39.9,adult: Status: Acute Code(s): Z68.39 - Body mass index [BMI] 39.0-39.9, adult Medications at Discharge Home Medications lisinopril 20 mg-hydrochlorothiazide 12.5 mg tablet 1 tab PO DAILY 06/02/24 docusate sodium 100 mg capsule (Colace) 100 mg PO BID #20 caps 06/16/24 oxycodone 5 mg tablet 5 mg PO Q6H PRN pain 3 days #14 tabs 06/16/24 Hospital Course Summary of Care Provided Minutes Spent on Discharge: 20 Hospital Course: Status post left radical nephrectomy for a very large renal mass postop course was essentially unremarkable but he did have a high blood pressure postop medical consult was obtained blood pressure was in improved with change of medications he will go home on his blood pressure medications and told to follow-up with his patient primary care physician to monitor his blood pressure. Physical Exam Const alert and oriented x3 General Appearance: cooperative HEENT normocephalic, head/scalp atraumatic, EAC's normal and TM's normal bilaterally Eyes PERRL and EOMs intact bilaterally Pupil: sluggish Neck no lymphadenopathy, supple and no JVD General: trachea midline Lymph Lymphatic: no lymphadenopathy noted, lymphedema and lymphadenopathy Resp normal respiratory effort, normal air movement and clear to auscultation bilaterally Cardio regular rate, regular rhythm and peripheral pulses 2+ throughout GI soft to palpation, non-tender and non-distended Extremity normal capillary refill and no clubbing, cyanosis or edema General Extremity: no tenderness to palpation of joints or extremities Skin no rashes or lesions noted General Skin Exam: turgor normal Lesions: no lesions Rashes: no rashes Neuro CN's II-XII intact bilaterally Speech: speech normal Motor Exam: strength 5/5 throughout; Negative for general weakness Psych thought process normal, cooperative and affect normal Appearance: appropriate Weight / BMI Weight Weight: 120.2 kg Body Mass Index (BMI) 39.1 ABG / Lab / Microbiology Data 06/19/24 06:40 06/19/24 06:40 Laboratory: Laboratory Results - last 24 hr 06/17/24 06:31: Diff Path Review Reviewed 06/18/24 04:46: Diff Path Review Reviewed 06/19/24 06:40: WBC 17.9 H, RBC 5.39, Hgb 15.8, Hct 48.4, MCV 89.8, MCH 29.3, MCHC 32.6, RDW Std Deviation 42.5, RDW Coeff of Gabby 12.9, Plt Count 368, MPV 10.6, Immature Gran % (Auto) 1.000 H, Neut % (Auto) 74.8 H, Lymph % (Auto) 15.7 L, [place] % (Auto) 7.9, Eos % (Auto) 0.1, Baso % (Auto) 0.5, Absolute Neuts (auto) 13.4 H, Absolute Lymphs (auto) 2.81, Nucleated RBC % 0, Sodium 136, Potassium 3.5, Chloride 100, Carbon Dioxide 27.0, Anion Gap 8, BUN 11, Creatinine 1.20, Estim Creat Clear Calc 89.03, Est GFR (MDRD) Af Amer 81, Est GFR (MDRD) Non-Af 67, BUN/Creatinine Ratio 9.2 L, Glucose 121 H, Calcium 9.0 D/C Instructions Discharge Diet: No restrictions Additional Activity Instructions: no lifting Call your doctor if you observe: Fever of 101 or Higher Suture Line Care: Avoid Pulling/Pushing and Avoid Pinching/Bending DC O2, CPAP, BIPAP Needs Home O2 Discharge instructions: No Please Follow Up With: Dru Godwin MD When: Call [phone] for an appointment Meaningful Use Info Meaningful Use Meaningful Use Diagnoses (Choose all that apply): None applicable Ischemic Stroke Statin Dosing Therapy Reference: STATIN DOSE THERAPY REFERENCE: * Patients > 75 years receive moderate or high dose statin therapy. * Patients 75 years or YOUNGER should receive HIGH intensity statin dose unless contraindicated. You will be required to document reason for non-treatment if statin daily dose does not meet guidelines. HIGH DOSE STATIN THERAPY DAILY Atorvastatin > than or = to 40 mg Rosuvastatin > than or = to 20 mg Amlodipine + Atorvastatin > than or = to 2.5/40 mg Ezetimibe + Simvastatin 10/80 mg Simvastatin 80mg Discharge Plan Admission Admit Date/Time: 06/16/24 07:49 Primary Reason for Your Visit: left radical nephrectomy Attending Provider: Dru Godwin Primary Care Provider: Jordon Lowry Consulting Providers: Jamal Olivas Discharge Orders/Prescriptions Prescriptions: New oxycodone 5 mg tablet 5 mg PO Q6H PRN (Reason: pain) 3 Days Qty: 14 0RF docusate sodium [Colace] 100 mg capsule 100 mg PO BID Qty: 20 0RF No Action lisinopril-hydrochlorothiazide 20-12.5 mg tablet 1 tab PO DAILY Other Ambulatory Orders: Chest PA and Lateral (Routine) Timeframe: [id number] Facility: [facility] - Location: [facility] Ordered By: Dr. Dru Godwin Referrals / Follow Up: Dru Godwin MD [Med Staff - Active Staff] - Jordon Lowry MD [Primary Care Provider] - Disposition Discharge Orders: Discharge Patient (Routine); Ordered 06/20/24 Ordered By: Dr. Dru Godwin
--- NOTE | 2024-06-20 08:18 | PCM.PN.HOSP ---
Reason for Visit Reason for Visit: Diagnoses Essential (primary) hypertension (06/16/24) Other specified disorders of kidney and ureter (06/16/24) Body mass index [BMI] 39.0-39.9, adult (06/16/24) Subjective Subjective Patient seen blood pressure stabilized plan is for patient to be assessed for possible disc Objective Data Objective Data Vital Signs: Vital Signs Temp Pulse Resp BP Pulse Ox O2 Del Method O2 Flow Rate 98.2 F 108 H 20 H 123/74 H 94 Room Air 2 06/20/24 00:30 06/20/24 00:30 06/20/24 00:30 06/20/24 00:30 06/20/24 00:30 06/20/24 00:30 06/16/24 17:27 Oxygen Flow Rate (L/min) 2 Oxygen Delivery Method Room Air Weight: 120.2 kg Body Mass Index (BMI) 39.1 Intake & Output: Intake and Output for Last 24 Hours 06/18/24 06/19/24 06/20/24 23:59 23:59 23:59 Intake Total 1800 / 1800 440 / 440 240 / 240 Output Total 450 / 450 Balance 1350 / 1350 440 / 440 240 / 240 Lab / Micro Data 06/19/24 06:40 06/19/24 06:40 Labs: Laboratory Results - last 24 hr 06/17/24 06:31: Diff Path Review Reviewed 06/18/24 04:46: Diff Path Review Reviewed 06/19/24 06:40: Sodium 136, Potassium 3.5, Chloride 100, Carbon Dioxide 27.0, Anion Gap 8, BUN 11, Creatinine 1.20, Estim Creat Clear Calc 89.03, Est GFR (MDRD) Af Amer 81, Est GFR (MDRD) Non-Af 67, BUN/Creatinine Ratio 9.2 L, Glucose 121 H, Calcium 9.0 Physical Exam Narrative GENERAL: cooperative HEENT: Atraumatic; normocephalic EYES; Anicteric, Normal Conjunctiva NECK; supple, normal thyroid, RESPIRATORY: Diminished to auscultation CARDIOVASCULAR: Regular S1 S2, GI: soft, normoactive bowel sounds, : Surgical incision left lower quadrant EXTREMITIES: No edema, no clubbing, MUSCULOSKELETAL: no muscle wasting NEURO: Awake; no lateralizing signs. SKIN: No Rash PSYCH; Flat affect Assessment & Plan Assessment/Plan (1) Left renal mass: (2) Essential (primary) hypertension: (3) BMI 39.0-39.9,adult: PLAN: Plan Patient is a 54-year-old gentleman who underwent left radical nephrectomy on account of large left renal mass by Dr Godwin on 06/16/2024. Patient was found to have elevated blood pressure following the procedure. The hospitalist service consulted to assist with management. 1. Status post left radical nephrectomy ? On 06/06/2024 on account of large left renal mass by Dr Godwin 2. Elevated blood pressure ? Patient patient was on lisinopril and HCTZ at home, resumed added hydralazine as needed. Blood pressure greater than 1 6 3. Class II obesity with BMI of 39.1 ? Complicating care weight loss advised 4. DVT prophylaxis Defer to primary service. Did encourage patient to ambulate as much as possible Time spent in the patient's overall evaluation,decision-making process, review of diagnostic data, adjustment of management, discussion with other providers, nursing nursing and ancillary staff involved in patient's care documentation,35 Minutes Charges/Coding Visit Charges Inpatient E&M: 57023 Subs Hosp L2
[2024-06-20] MEDS: oxyCODONE 5 MG Tablet PO (08:25)
[2024-06-20] MEDS: Docusate Sodium 100 MG Capsule 200 MG PO (08:25)
[2024-06-20 08:42] VITALS: BP 109/74; PULSE 102; RESP 16; TEMP 37; O2SAT 97
--- NOTE | 2024-06-20 09:46 | CASEMGMT ---
DANIEL CM into pt room, pt sitting up in chair in no distress. Pt denies any homegoing needs. Pt plans to follow up with his PCP regarding his bp. He states he has a cuff but he is going to get another one as he does not feel like his is working. Pt is up indep. Pt denies further questions at this time.
[2024-06-20 13:35] VITALS: BP 108/82; PULSE 115; RESP 16; TEMP 36.6; O2SAT 96
--- NOTE | 2024-06-20 14:35 | PHA.DC.MC.R ---
Pharmacy [facility] Pharmacy Service has performed discharge medication reconciliation and counseling for this patient. 1. DOCUSATE 100MG PO BID 2. OXYCODONE 5MG PO Q6H PRN PAIN The patient's discharge medication list was reviewed for discrepancies and discrepancies were resolved. The patient was counseled on the following discharge medications and changes in medications for homegoing were reviewed. The Reason for Use, instructions for use, and potential side effects were reviewed for all new medications. The patient's questions regarding all of their medications were answered. The patient was able to verbally demonstrate an understanding of their discharge medications. Medications at Discharge Home Medications lisinopril 20 mg-hydrochlorothiazide 12.5 mg tablet 1 tab PO DAILY 06/02/24 docusate sodium 100 mg capsule (Colace) 100 mg PO BID #20 caps 06/16/24 oxycodone 5 mg tablet 5 mg PO Q6H PRN pain 3 days #14 tabs 06/16/24
== END 2024-06-20 13:34 | disposition home or self-care (01) | DRG 661 ==
LOC: SDC 12:23 → MS3 12:23
PROVIDERS: Admitting Provider Urology; PCP Family Medicine; Referring Provider Family Medicine; Visit Provider Urology
PROC: 0TT10ZZ Resection of Left Kidney, Open Approach (ICD-10-PCS; CPT 50546; principal; 2024-06-16 07:10)
DX: N28.89 Other specified disorders of kidney and ureter (principal); Z68.39 Body mass index [BMI] 39.0-39.9, adult; E66.812 Obesity, class 2; I10 Essential (primary) hypertension; Z79.891 Long term (current) use of opiate analgesic
CPT/HCPCS: 36415; 71045; 80048; 85025; 86850; 86900; 86901; 88307; 94668; 99252; 99406; A4216; G0463; J2405

== ENCOUNTER 2024-08-18 07:27 | Day surgery (SDC) | payer BC, SELFPAY ==
[2024-08-18] VITALS (7 sets, daily range): BP systolic 97–112; BP diastolic 59–72; PULSE 84–97; RESP 14–16; TEMP 36.1–36.8; O2SAT 96–98; BMI 37.8
--- NOTE | 2024-08-18 08:11 | PRE.ANES_ITS ---
ASA Classification* ASA Classification ASA Classification: 2 Assessment & Plan Anesthesia* Anesthesia Assessment Anesthesia Assessment: Discussed sedation and/or anesthesia options, risks, benefits, and alternatives with patient/parents/legal guardian/POA. Questions invited. The patient/parents/legal guardian/POA seems to understand and agrees to proceed with anesthesia plan. Reviewed the physical assessment, medical history, allergy history and patient home medications list prior to surgery/procedure/anesthetic and documented any changes. Performed airway and anesthesia risk assessments. Anesthesia Type Anesthesia Type: MAC History Source History Obtained from:: Patient and Chart Anesthesia Focused Assessment* Temperature: 97.4 F Pulse Rate: 97 Blood Pressure: 112/72 Respiratory Rate: 14 Pulse Ox: 96 Oxygen Delivery Method: Room Air Airway Assessment Mouth opens: >3 cm Mallampati Score: I Teeth Condition: Caps/Crowns (Tooth #8 has a crown) and Missing (Patient is missing one of his bottom front incisors. Rest of the teeth are tight.) Neck Range of motion (ROM): Full ROM Focused Labs Anesthesia Preop lab: CBC WBC 17.9 K/mm3 (4.4-11.0) H 06/19/24 06:40 5 RBC 5.39 M/mm3 (4.6-6.2) 06/19/24 06:40 06/19/24 Hgb 15.8 g/dL (13.0-16.5) 06/19/24 06:40 06/19/24 Hct 48.4 % (40-54) 06/19/24 06:40 06/19/24 Plt Count 368 K/mm3 (150-450) 06/19/24 06:40 06/19/24 CHEMISTRY Potassium 3.5 mmol/L (3.5-5.1) 06/19/24 06:40 06/19/24 Sodium 136 mmol/L (136-145) 06/19/24 06:40 06/19/24 BUN 11 mg/dL (7-18) 06/19/24 06:40 06/19/24 Creatinine 1.20 mg/dL (0.70-1.30) 06/19/24 06:40 06/19/24 Glucose 121 mg/dL (74-106) H 06/19/24 06:40 06/19/24 COAG Pre-Assessment Diagnosis/Proposed Procedure Planned Operative Procedure(s): CSCOPE Anesthesia History 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 When Was Last Pacemaker Check QUESTION #4 FULL TEXT: You/Your Family Experience fever (hyperthermia) with Anesthesia Last Oral Intake Last Oral intake: Last Oral Intake NPO since 20:00 08/18/24 07:48 Meds taken in AM with sips of water? Meds patient instructed to take am of surgery PONV PONV - hogshead stock clerk: PONV - hogshead stock clerk Female No 08/15/24 15:45 HX of Motion Sickness No 08/15/24 15:45 HX of N/V After Surgery No 08/15/24 15:45 Non-Smoker No 08/15/24 15:45 Duration of Surgery greater No 08/15/24 15:45 than 60 minutes Number of Risk Factors PONV Score Height & Weight Height & Weight: Anesthesia: Height & Weight Height 5 ft 9 in 08/18/24 07:48 Weight: 116 kg 08/18/24 07:48 Body Mass Index (BMI) 37.8 08/18/24 07:48 Respiratory Assessment Respiratory Assessment - hogshead stock clerk: Respiratory Tract Infection Hx - hogshead stock clerk Hx Respiratory Tract Infection No 08/15/24 15:45 STOP Sleep Apnea STOP Sleep Apnea - hogshead stock clerk: STOP Sleep Apnea - hogshead stock clerk Hx Hypertension Yes: PER PT, CONTROLLED ON 08/15/24 15:45 MEDS Hx Sleep Apnea Yes: NO MACHINE SINCE 201308/15/24 15:45 CPAP No 08/15/24 15:45 BIPAP No 08/15/24 15:45 Do you snore loudly (louder than talking or can be heard Do you often feel tired/ fatigued/ sleepy during daytime? Has anyone observed you stop breathing during sleep? STOP Results Positive 08/15/24 15:45 QUESTION #5 FULL TEXT : Do you snore loudly (louder than talking or can be heard through closed doors)? 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 Specify any problems Hx of Preganancy in last 3 N/A 08/15/24 15:45 Months Nurse Filling Out Transfusion DSCHRIBER 08/15/24 15:45 & Questions: Date: 08/15/24 08/15/24 15:45 Time: 15:46 08/15/24 15:45 Patient unable to answer at this time (ie. confused, unrespo /Reproduction History /Reproductive History - hogshead stock clerk: /Reproductive Hx- hogshead stock clerk Hx Now No 08/15/24 15:45 Gestational Age (in weeks): EDC: Hx Hx Para Hx Section SAB No 08/15/24 15:45 PFSH Medical History Cancer Sleep apnea Chewing tobacco dependence BMI 39.0-39.9,adult Essential (primary) hypertension Wears glasses History of MRSA infection Alcohol use Arthritis Injury of head and neck Heartburn History of rheumatic fever History of cardiac murmur Home Medications ?Medication ?Instructions ?Recorded ?Last Taken ?Type lisinopril 20 2 tab PO QDAY 07/05/2408/17 History mg-hydrochlorothiazide 12.5 mg tablet Allergy/AdvReac Type Severity Reaction Status Date / Time adhesive tape AdvReac RASH Verified 08/18/24 07:47 Family History Mother Bleeding disorder Breast cancer Hypertension Sister Breast cancer Brother Hypertension Surgical History H/O left nephrectomy History of medial meniscus repair of right knee History of cholecystectomy Social History Smoking Status: Current every day smoker tobacco type: smokeless tobacco alcohol intake: current alcohol intake frequency: holidays/special occasions only Review of Systems (Anesthesia) ROS Narrative System reviewed and no additional complaints, except as documented.
--- NOTE | 2024-08-18 09:17 | HP.PCM_ITS ---
HPI - General General Date of Admission: 08/18/24 Date of Service: 08/18/24 Chief Complaint: Colonoscopy HPI Narrative JAKUB SANDERS, is a 54 M who presents for screening colonoscopy. He has not had no previous colonoscopy. He denies any GI symptoms. He believes his brother may have had colon polyps REPLACED BY [facility] Medical History Cancer Sleep apnea Chewing tobacco dependence BMI 39.0-39.9,adult Essential (primary) hypertension Wears glasses History of MRSA infection Alcohol use Arthritis Injury of head and neck Heartburn History of rheumatic fever History of cardiac murmur Home Medications ?Medication ?Instructions ?Recorded ?Last Taken ?Type lisinopril 20 2 tab PO QDAY 07/05/2408/17 History mg-hydrochlorothiazide 12.5 mg tablet Allergy/AdvReac Type Severity Reaction Status Date / Time adhesive tape AdvReac RASH Verified 08/18/24 07:47 Family History Mother Bleeding disorder Breast cancer Hypertension Sister Breast cancer Brother Hypertension Surgical History H/O left nephrectomy History of medial meniscus repair of right knee History of cholecystectomy Social History Smoking Status: Current every day smoker (Patient did not smoke today.) tobacco type: smokeless tobacco alcohol intake: current alcohol intake frequency: holidays/special occasions only Vital Signs Vital Signs Vital Signs: 08/18/24 07:48 08/18/24 07:48 08/18/24 08:21 Temperature 97.4 F L 97.4 F L Temperature Source Temporal Pulse Rate 97 97 Respiratory Rate 14 14 Respiratory Pattern Normal Blood Pressure 112/72 112/72 Blood Pressure Mean 85 Blood Pressure Source Monitor Blood Pressure Position Semi-Fowlers Blood Pressure Location Left Arm Pulse Ox 96 96 Oxygen Delivery Method Room Air Room Air Weight Weight: 255 lb 11.779 oz Body Mass Index (BMI) 37.8 Physical Exam Const alert, oriented x3 and no apparent distress Assessment & Plan Assessment/Plan (1) Positive colorectal cancer screening using Cologuard test: PLAN: Plan The patient is a 54-year-old male in need of a screening colonoscopy. He had a positive Cologuard test. We discussed the details of the planned procedure as well as risk benefits and alternatives. He wishes to proceed. This began momentarily
--- NOTE | 2024-08-18 09:45 | PCM.POST.ANE ---
Anesthesia: Postop Eval I Current Vital Signs Temperature: 97 F Pulse Rate: 84 Blood Pressure: 107/59 Respiratory Rate: 16 Pulse Ox: 97 Oxygen Delivery Method: Room Air Assessment Airway patent: Yes Spontaneous unlabored respirations: Yes Mental status: Awake and Calm nausea: No Vomiting: No Anesthesia Complication: No Fluid Hydration Crystalloid volume administer (ml): 30 Total IV fluid infused: 30 Progress Note Anesthesia document: Postop Eval 1 completed: Yes
--- NOTE | 2024-08-18 09:49 | POSTOPAN2_ITS ---
Anesthesia Postop Eval I Sum Postop Eval Completion status Anesthesia document: Postop Eval 1 completed: Yes Anesthesia Postop Eval I Summary Anesthesia Postop Eval I Summary: Anesthesia Postop Eval I: Assessment Summary Airway patent Yes 08/18/24 09:45 PROFESSOR OF HISTORY.MDOT Spontaneous unlabored Yes 08/18/24 09:45 PROFESSOR OF HISTORY.MDOT respirations Mental status Awake,Calm 08/18/24 09:45 PROFESSOR OF HISTORY.MDOT nausea No 08/18/24 09:45 PROFESSOR OF HISTORY.MDOT Vomiting No 08/18/24 09:45 PROFESSOR OF HISTORY.MDOT Anesthesia Postop Eval I: Fluid Summary Crystalloid volume administer 30 08/18/24 09:45 PROFESSOR OF HISTORY.MDOT (ml) Colloids volume administered ( ml) Blood Product volume administered (ml) Total IV fluid infused 30 08/18/24 09:45 PROFESSOR OF HISTORY.MDOT Anesthesia Postop Eval I: Summary Notes Anesthesia Complication No 08/18/24 09:45 PROFESSOR OF HISTORY.MDOT Anesthesia Complication Comment: Post-operative progress note Anesthesia: Postop Eval II Evaluation Mental status: Awake and Calm Pain Level: 0 nausea: No Vomiting: No Complications Anesthesia Complication: No
--- NOTE | 2024-08-18 09:49 | PCM.POSTANE2 ---
Anesthesia Postop Eval I Sum Postop Eval Completion status Anesthesia document: Postop Eval 1 completed: Yes Anesthesia Postop Eval I Summary Anesthesia Postop Eval I Summary: Anesthesia Postop Eval I: Assessment Summary Airway patent Yes 08/18/24 09:45 HOB MILL OPERATOR.MDOT Spontaneous unlabored Yes 08/18/24 09:45 HOB MILL OPERATOR.MDOT respirations Mental status Awake,Calm 08/18/24 09:45 HOB MILL OPERATOR.MDOT nausea No 08/18/24 09:45 HOB MILL OPERATOR.MDOT Vomiting No 08/18/24 09:45 HOB MILL OPERATOR.MDOT Anesthesia Postop Eval I: Fluid Summary Crystalloid volume administer 30 08/18/24 09:45 HOB MILL OPERATOR.MDOT (ml) Colloids volume administered ( ml) Blood Product volume administered (ml) Total IV fluid infused 30 08/18/24 09:45 HOB MILL OPERATOR.MDOT Anesthesia Postop Eval I: Summary Notes Anesthesia Complication No 08/18/24 09:45 HOB MILL OPERATOR.MDOT Anesthesia Complication Comment: Post-operative progress note Anesthesia: Postop Eval II Evaluation Mental status: Awake and Calm Pain Level: 0 nausea: No Vomiting: No Complications Anesthesia Complication: No
--- NOTE | 2024-08-18 09:54 | OP.COLON_ITS ---
Patient Name: Valente Andino Procedure Date: 08/18/2024 9:15 AM Date of : 1970 Age: 54 Procedure: Colonoscopy Indications: Positive Cologuard test Providers: Danielito Badillo MD Referring MD: Jordon Lowry Medicines: Monitored Anesthesia Care Patient Profile: Refer to note in patient chart for documentation of history and physical. Last Colonoscopy: none. The patient's first colonoscopy is today. Complications: No immediate complications. Estimated blood loss: None. Procedure: Pre-Anesthesia Assessment: - Prior to the procedure, a History and Physical was performed, and patient medications and allergies were reviewed. The patient's tolerance of previous anesthesia was also reviewed. The risks and benefits of the procedure and the sedation options and risks were discussed with the patient. All questions were answered, and informed consent was obtained. Prior Anticoagulants: The patient has taken no anticoagulant or antiplatelet agents. ASA Grade Assessment: II - A patient with mild systemic disease. After reviewing the risks and benefits, the patient was deemed in satisfactory condition to undergo the procedure. After I obtained informed consent, the scope was passed under direct vision. Throughout the procedure, the patient's blood pressure, pulse, and oxygen saturations were monitored continuously. The adult colonoscope was introduced through the anus and advanced to the cecum, identified by appendiceal orifice and ileocecal valve. The ileocecal valve, appendiceal orifice, and rectum were photographed. The entire colon was well visualized. The colonoscopy was performed without difficulty. The patient tolerated the procedure well. The quality of the bowel preparation was fair. Moderate Sedation: See the other procedure note for documentation of moderate sedation with intraservice time. Scope In: 9:26:52 AM Scope Withdrawal Time 0 hours 11 minutes 33 seconds Scope Out: 9:41:13 AM Total Procedure Duration Time 0 hours 14 minutes 21 seconds Findings: The perianal and digital rectal examinations were normal. A few small-mouthed diverticula were found in the sigmoid colon. Internal hemorrhoids were found. The hemorrhoids were moderate. Estimated blood loss: none. Estimated blood loss: none. The exam was otherwise without abnormality on direct and retroflexion views. Impression: - Preparation of the colon was fair. - Diverticulosis in the sigmoid colon. - Internal hemorrhoids. - The examination was otherwise normal on direct and retroflexion views. - No specimens collected. Recommendation: - Discharge patient to home (ambulatory). - High fiber diet. - Repeat colonoscopy in 10 years for screening purposes. - Continue present medications. Procedure Code(s): --- Professional --- 57978, Colonoscopy, flexible; diagnostic, including collection of specimen(s) by brushing or washing, when performed (separate procedure) Diagnosis Code(s): --- Professional --- K64.8, Other hemorrhoids K57.30, Diverticulosis of large intestine without perforation or abscess without bleeding R19.5, Other fecal abnormalities CPT copyright 2021 [employer]. All rights reserved. The codes documented in this report are preliminary and upon guide escort review may be revised to meet current compliance requirements. Danielito Badillo MD 08/18/2024 9:53:21 AM This report has been signed electronically. Number of Addenda: 0 Note Initiated On: 08/18/2024 9:15 AM
--- NOTE | 2024-08-18 09:54 | OP.CCLET_ITS ---
08/18/2024 Jordon Lowry Re : Colonoscopy procedure for Valente Buitragovanessa Lowry This procedure was performed on Sunday, August 18, 2024. My impressions and recommendations are as follows: Impressions : - Preparation of the colon was fair. - Diverticulosis in the sigmoid colon. - Internal hemorrhoids. - The examination was otherwise normal on direct and retroflexion views. - No specimens collected. Recommendations : - Discharge patient to home (ambulatory). - High fiber diet. - Repeat colonoscopy in 10 years for screening purposes. - Continue present medications. My findings are described in the full procedure note, which is enclosed. If I can be of further assistance, please feel free to contact me at . Sincerely, Danielito Badillo MD 08/18/2024 9:53:21 AM This report has been signed electronically.
== END 2024-08-18 10:21 | disposition home or self-care (01) ==
LOC: EN 07:28 → AC 07:30
PROVIDERS: PCP Family Medicine; Referring Provider Family Medicine; Visit Provider Surgery
PROC: 0DJD8ZZ Inspection of Lower Intestinal Tract, Via Natural or Artificial Opening Endoscopic (ICD-10-PCS; CPT 45378; principal; 2024-08-18 08:55)
DX: K64.8 Other hemorrhoids (principal); K57.30 Diverticulosis of large intestine without perforation or abscess without bleeding; R19.5 Other fecal abnormalities; I10 Essential (primary) hypertension; F17.220 Nicotine dependence, chewing tobacco, uncomplicated; Z79.899 Other long term (current) drug therapy
CPT/HCPCS: 45378; A4216

== ENCOUNTER → 2024-09-28 | Outpatient (CLI) | payer BC, SELFPAY ==
--- NOTE | 2024-09-28 16:37 | RAD_ITS ---
PROCEDURE: CHEST PA AND LATERAL 09/28/2024 REASON FOR EXAM: MALIGNANT NEOPLASM OF LEFT KIDNEY,EXCEPT RENAL PELVIS TECHNIQUE: Frontal and lateral views of the chest. COMPARISON: 06/16/2024 FINDINGS: The lungs appear clear. Pulmonary vascularity appears within limits. No pleural effusion. The cardiac and mediastinal contours appear within limits. Atherosclerotic change of the arch. Visualized osseous structures appear within limits. RAD/Chest PA and Lateral IMPRESSION: Study appears within limits. Reading Location: [id number]
[2024-09-28 17:08] LABS: Hematocrit 46.4 % (40-54); Hemoglobin 15.5 g/dL (13.0-16.5); Mean Corp Hgb Conc 33.4 g/dL (32-36); Mean Corpuscular Hgb 29.9 pg (27.0-32.0); Mean Corpuscular Volume 89.6 fL (80-94); Mean Platelet Vol. 10.4 fl (6.2-12.0); Platelet Count 388 K/mm3 (150-450); RBC Distribution Width CV 13.6 % (11.6-14.6); RBC Distribution Width SD 44.5 fl (35.1-43.9); Red Blood Count 5.18 M/mm3 (4.6-6.2); White Blood Count 14.5 K/mm3 (4.4-11.0)
[2024-09-28 17:35] LABS: ALB/GLOB Ratio 1.3 RATIO (0.9-2.4); AST(SGOT) 26 U/L (<=37); Alanine Aminotransfer ALT/SGPT 32 U/L (<=46); Albumin, Serum 4.3 g/dL (3.5-5.0); Alkaline Phosphatase 123 U/L (40-129); Anion Gap 12 (5-15); BUN 20 mg/dL (4-19); BUN/Creat Ratio 14.4 RATIO (10-20); Calcium,Total 9.6 mg/dL (7.6-11.0); Carbon Dioxide 24.3 mmol/L (21.0-32.0); Chloride 102 mmol/L (98-108); EST Glomerular Filtration Rate 59 (>60); Globulin 3.3 g/dL (2.2-4.2); Glucose 96 mg/dL (70-99); Protein, Total 7.6 g/dL (5.9-8.4); Sodium Level 138 mmol/L (133-145); Total Bilirubin 0.36 mg/dL (0.00-1.30)
== END | disposition home or self-care (01) ==
PROVIDERS: Urology; PCP Family Medicine; Referring Provider Nurse Practitioner; Visit Provider Nurse Practitioner
DX: C64.2 Malignant neoplasm of left kidney, except renal pelvis (principal)
CPT/HCPCS: 36415; 71046; 80053; 85027

== ENCOUNTER → 2024-10-04 | Outpatient (CLI) | payer BC, SELFPAY ==
[2024-10-04 16:17] LABS: Bacteria 0 SEEN /hpf (None Seen); Mucous, Urine 0 SEEN /hpf (<or=2+); Squamous Epithelial Cells - UA 0 SEEN /hpf (0-5)
[2024-10-04 18:03] LABS: Absolute Lymphocyte Count 4.54 X10^3/uL (0.83-4.51); Absolute Neutrophil Count 7.1 X10^3/uL (2.0-7.7); Basophil% 0.8 % (0-1); Eosinophil# 0.31 X10^3/uL; Eosinophils% 2.4 % (0-5); Hemoglobin 15.5 g/dL (13.0-16.5); Lymphocyte # 4.54 X10^3/ul (0.83-4.51); Lymphocyte % 34.7 % (19-41); Mean Corp Hgb Conc 33.7 g/dL (32-36); Mean Corpuscular Hgb 30.4 pg (27.0-32.0); Mean Corpuscular Volume 90.2 fL (80-94); Mean Platelet Vol. 11.1 fl (6.2-12.0); Monocyte# 0.91 X10^3/uL; NRBC Flagged by Analyzer 0 % (0-5); Neutrophil % 54.2 % (47-70); Platelet Count 361 K/mm3 (150-450); RBC Distribution Width CV 13.6 % (11.6-14.6); RBC Distribution Width SD 44.6 fl (35.1-43.9); White Blood Count 13.1 K/mm3 (4.4-11.0)
[2024-10-04 18:32] LABS: Color, Urine Yellow (Yellow); Glucose, Dipstick Normal (Normal); Ketone-Dipstick Negative (Negative); Leukocyte Esterase-Dipstick Negative /ul (Negative); Nitrite-Dipstick Negative (Negative); Occult Blood-Urine Negative /ul (Negative); Protein-Dipstick Negative (Negative); Specific Gravity, Urine 1.015 (1.002-1.030); Urine Bilirubin Dipstick Negative (Negative); Urine Clarity Clear (Clear); Urine Urobilinogen Normal (Normal)
[2024-10-04 18:42] LABS: Red Blood Cells-Urine 0-5 SEEN /hpf (0-5); White Blood Cells 0-5 SEEN /hpf (0-5)
[2024-10-05 11:44] LABS: ALB/GLOB Ratio 1.2 RATIO (0.9-2.4); AST(SGOT) 29 U/L (<=37); Alanine Aminotransfer ALT/SGPT 37 U/L (<=46); Albumin, Serum 4.2 g/dL (3.5-5.0); Alkaline Phosphatase 118 U/L (40-129); Anion Gap 12 (5-15); BUN 20 mg/dL (4-19); Calcium,Total 8.4 mg/dL (7.6-11.0); Chloride 104 mmol/L (98-108); Cholesterol 138 mg/dL (<=200); Creatinine, Serum 1.33 mg/dL (0.70-1.20); EST Glomerular Filtration Rate 63 (>60); Globulin 3.4 g/dL (2.2-4.2); Glucose 101 mg/dL (70-99); High Density Lipoprotein 35 mg/dL; Low Density Lipoprotein Calc. 71 mg/dL; Potassium 4.2 mmol/L (3.3-5.1); Protein, Total 7.6 g/dL (5.9-8.4); Sodium Level 141 mmol/L (133-145); Thyroid Stim Hormone (TSH) 0.827 uIU/mL (0.300-4.200); Total Bilirubin 0.38 mg/dL (0.00-1.30); Triglycerides 161 mg/dL; Very Low Density Lipoprotein 32 mg/dL (5-40); Vitamin B12 503 pg/mL (180-914); Vitamin D,25 Hydroxy 16.8 ng/mL (30-100); cholesterol:hdl ratio screen 3.99
[2024-10-06 15:58] LABS: Hemoglobin A1c 6.6 % (<=5.6)
== END | disposition home or self-care (01) ==
LOC: MFPLAB 16:13
PROVIDERS: PCP Family Medicine; Referring Provider Family Medicine; Visit Provider Family Medicine
DX: I10 Essential (primary) hypertension (principal); R53.83 Other fatigue; R73.09 Other abnormal glucose
CPT/HCPCS: 36415; 80053; 80061; 81001; 82306; 82607; 83036; 83735; 84402; 84403; 84439; 84443; 85025

== ENCOUNTER → 2024-10-07 | Outpatient (CLI) | payer BC, SELFPAY ==
--- NOTE | 2024-10-07 11:11 | US_ITS ---
PROCEDURE: THYROID 10/07/2024 REASON FOR EXAM: Thyroid nodule. TECHNIQUE: High-frequency thyroid ultrasound, including grayscale and color-flow images. REFERENCE LINKS: TI-RADS Chart: [email or web address] TI-RADS Calculator Tool with Reference Images: [email or web address] COMPARISON: None FINDINGS: Right thyroid lobe size: 3.8 cm 1.7 cm x 1.7 cm. Left thyroid lobe size: 3.1 cm x 1.8 cm 1.5 cm Isthmus: 0.2 cm Background parenchymal echotexture is homogeneous. Nodules: . Lobe: Right, Location: Lower pole, Size: 0.5 cm 0.5 cm x 0.4 cm, Stability: N/A Composition: Cystic or mostly cystic (+0) Echogenicity: Anechoic (+0) Margin: Smooth (+0) Shape: Wider than tall (+0) Echogenic Foci: None (+0) TI-RADS: <2 = TR 1 * 2 = TR 2 * 3 = TR 3 * 4-6 = TR 4 * >6 = TR 5 . Lobe: Right, Location: Lower pole, Size: 0.4 cm x 0.4 cm 0.3 cm, Stability: N/A Composition: Solid or almost completely solid (+2) Echogenicity: Hypoechoic (+2) Margin: Smooth (+0) Shape: Wider than tall (+0) Echogenic Foci: None (+0) TI-RADS: <2 = TR 1 * 2 = TR 2 * 3 = TR 3 * 4-6 = TR 4 * >6 = TR 5 US/Thyroid IMPRESSION: Subcentimeter hypoechoic nodule measuring 4 mm x 4 mm x 3 mm in the lower pole of the right lobe. Annual follow-up recommended. RECOMMENDATION: Based on most suspicious nodule. Nodule size = largest diameter Only evaluate nodule if =>5 mm. Growth > 20% in 2 dimensions = worsening. Follow up to 4 nodules. Recommend biopsy for no more than 2 nodules. Reading Location: [place] [id number]
== END | disposition home or self-care (01) ==
LOC: US 11:10
PROVIDERS: PCP Family Medicine; Referring Provider Family Medicine; Visit Provider Family Medicine
DX: E04.1 Nontoxic single thyroid nodule (principal)
CPT/HCPCS: 76536

== ENCOUNTER → 2024-10-17 | Outpatient (CLI) | payer BC, SELFPAY ==
--- NOTE | 2024-10-17 16:35 | CT_ITS ---
PROCEDURE: ABDOMEN/PELVIS WITHOUT CONT 10/17/2024 REASON FOR EXAM: MALIGNANT NEOPLASM OF LEFT KIDNEY, EXCEPT RENAL PELVIS TECHNIQUE: Abdomen and pelvis CT without intravenous contrast. Noncontrast technique limits evaluation of the abdominal and pelvic viscera. Coronal and Sagittal reconstruction series were provided. One or more dose reduction techniques were used (e.g., Automated exposure control, adjustment of the mA and/or kV according to patient size, use of iterative reconstruction technique). PATIENT PREPARATION: Per protocol CTDIvol: 20.3 ,Gy DLP: 1128 mGy-cm COMPARISON: None FINDINGS: Lung bases: There is a solid pulmonary nodule measuring 3 mm in the left lower lobe (series 2, image 22). Liver: Diffuse fatty infiltration. Gallbladder: Surgically absent. Spleen: Normal size. Pancreas: Normal size. No surrounding inflammation. Adrenals: Unremarkable Kidneys: The left kidney is surgically absent. There is an ovoid soft tissue lesion at the left renal fossa measuring 1.2 x 0.8 cm (series 2, image 63) there is a nonobstructing stone measuring 4 mm at the upper pole of the right kidney. Bladder: Unremarkable Reproductive Organs: Unremarkable Bowel: No obstruction or inflammation. Normal appendix. Mild colonic diverticulosis. Fat density lesion with peripheral hyperdensity in the left lateral aspect of the lower abdomen may be sequela of prior epiploic appendagitis. Lymph nodes: No significant lymphadenopathy Vasculature: Mild diffuse atherosclerotic calcifications are noted. Bones: There are few ill-defined patchy areas of sclerosis throughout the pelvis, for example measuring 6 mm in the left iliac bone (series 2, image 132). CT/Abdomen/Pelvis without Cont IMPRESSION: 1. Postoperative changes from left nephrectomy. Evaluation for recurrent or m etastatic disease is limited on this noncontrast exam. A nodular soft tissue density in the postoperative bed measuring 1.2 cm may represent a lymph node, though recurrent or residual disease could appear similar. Recommend continued attention on future exams. 2. Pulmonary nodule measuring 3 mm in the left lower lobe. Consider dedicated CT chest. 3. Subtle ill-defined sclerotic foci in the pelvis, nonspecific. Correlate wi th prior imaging if available, and recommend continued attention on future exams. 4. Nonobstructing stone in the right kidney measuring 4 mm. 5. Hepatic steatosis. Reading Location: [id number]
== END | disposition home or self-care (01) ==
LOC: CT 16:27
PROVIDERS: PCP Family Medicine; Referring Provider Urology; Visit Provider Urology
DX: C64.2 Malignant neoplasm of left kidney, except renal pelvis (principal)
CPT/HCPCS: 74176

== ENCOUNTER → 2024-11-23 | Outpatient (CLI) | payer BC, SELFPAY ==
--- NOTE | 2024-11-23 18:14 | CT_ITS ---
PROCEDURE: CHEST WITHOUT CONTRAST 11/23/2024 REASON FOR EXAM: NODULE, HISTORY OF SMOKING TECHNIQUE: Chest CT without contrast. Coronal and Sagittal reconstruction series were provided. One or more dose reduction techniques were used (e.g., Automated exposure control, adjustment of the mA and/or kV according to patient size, use of iterative reconstruction technique RADIATION DOSE SUMMARY: CTDlvol: 19.74 mGy DLP: 685.69 mGycm COMPARISON: Chest x-ray dated 09/28/2024. No prior CT scan of the chest is available for comparison. FINDINGS: Normal unenhanced main pulmonary artery and right and left pulmonary arteries. Normal bilateral peripheral pulmonary arteries. Normal thoracic aorta and visualized great vessels. There is no demonstrated aortic aneurysm. Minimal atherosclerotic calcifications are seen in the aortic arch. Normal heart and pericardium. The coronary arteries are not calcified. Normal mediastinum. Normal hilar regions. Normal visualized trachea and bronchi. The lungs are well expanded. Normal pulmonary parenchyma. Normal pleura. Normal chest wall structures. Normal osseous structures. Prominent xiphoid process of the sternum is noted which bulges anteriorly. Normal visualized upper abdomen. CT/Chest without Contrast IMPRESSION: Coronary artery calcification (CAC) is 0 No evidence of pulmonary nodule or suspected lesion. Lung-Rads: 1 Reading Location: [facility]
== END | disposition home or self-care (01) ==
LOC: CT 18:07
PROVIDERS: PCP Family Medicine; Referring Provider Family Medicine; Visit Provider Family Medicine
DX: R91.1 Solitary pulmonary nodule (principal)
CPT/HCPCS: 71250

== ENCOUNTER → 2025-01-11 | Outpatient (CLI) | payer BC, SELFPAY ==
[2025-01-11 18:12] LABS: AST(SGOT) 25 U/L (<=37); Alanine Aminotransfer ALT/SGPT 31 U/L (<=46); Albumin, Serum 4.3 g/dL (3.5-5.0); Alkaline Phosphatase 118 U/L (40-129); Anion Gap 15 (5-15); BUN 18 mg/dL (4-19); BUN/Creat Ratio 12.9 RATIO (10-20); Calcium,Total 9.5 mg/dL (7.6-11.0); Carbon Dioxide 22.3 mmol/L (21.0-32.0); Chloride 102 mmol/L (98-108); Cholesterol 115 mg/dL (<=200); Globulin 3.4 g/dL (2.2-4.2); Glucose 101 mg/dL (70-99); Low Density Lipoprotein Calc. 57 mg/dL; Potassium 4.0 mmol/L (3.3-5.1); Triglycerides 111 mg/dL; Very Low Density Lipoprotein 22 mg/dL (5-40); cholesterol:hdl ratio screen 3.17
[2025-01-11 18:36] LABS: Hematocrit 46.4 % (40-54); Hemoglobin 15.8 g/dL (13.0-16.5); Immature Granulocytes Count 0.130 X10^3/uL (0.0-0.0); Mean Corp Hgb Conc 34.1 g/dL (32-36); Mean Corpuscular Volume 88.9 fL (80-94); Mean Platelet Vol. 10.5 fl (6.2-12.0); NRBC Flagged by Analyzer 0 % (0-5); Platelet Count 368 K/mm3 (150-450); RBC Distribution Width CV 13.2 % (11.6-14.6); RBC Distribution Width SD 42.6 fl (35.1-43.9); Red Blood Count 5.22 M/mm3 (4.6-6.2); White Blood Count 14.0 K/mm3 (4.4-11.0)
[2025-01-11 19:35] LABS: Creatinine, Urine (random) 181.00 mg/dL (39.00-259.00); Microalbumin,Random Urine 12.1 mg/L (<20 mg/L)
== END | disposition home or self-care (01) ==
LOC: MFPLAB 16:32
PROVIDERS: PCP Family Medicine; Referring Provider Family Medicine; Visit Provider Family Medicine
DX: E11.8 Type 2 diabetes mellitus with unspecified complications (principal)
CPT/HCPCS: 36415; 80053; 80061; 82043; 82570; 83036; 85025

== ENCOUNTER 2025-01-16 10:16 | Outpatient (RCR) | payer BC, SELFPAY | END 2025-02-13 23:59 | LOC: NS 10:16 | PROVIDERS: PCP Family Medicine; Referring Provider Family Medicine; Visit Provider Family Medicine | DX: Z71.3 Dietary counseling and surveillance (principal); E66.01 Morbid (severe) obesity due to excess calories; E11.8 Type 2 diabetes mellitus with unspecified complications; Z68.39 Body mass index [BMI] 39.0-39.9, adult | CPT/HCPCS: 97802 ==

== ENCOUNTER → 2025-02-21 | Outpatient (CLI) | payer BC, SELFPAY ==
--- NOTE | 2025-02-21 19:04 | CT_ITS ---
EXAM: CT Abdomen and Pelvis Without Intravenous Contrast CLINICAL INDICATION: MALIGNANT NEOPLASM LEFT KIDNEY TECHNIQUE: Axial computed tomography images of the abdomen and pelvis without intravenous contrast. This CT exam was performed using one or more of the following dose reduction techniques: automated exposure control, adjustment of the mA and/or kV according to patient size, and/or use of iterative reconstruction technique. COMPARISON: CT Abdomen Pelvis dated 10/17/2024 FINDINGS: LUNG BASES: Unremarkable. No mass. No consolidation. ABDOMEN: LIVER: Fatty infiltration of the liver. GALLBLADDER AND BILE DUCTS: Unremarkable. No calcified stones. No ductal dilation. PANCREAS: Unremarkable. No ductal dilation. SPLEEN: Unremarkable. No splenomegaly. ADRENALS: Unremarkable. No mass. KIDNEYS AND URETERS: Status post left nephrectomy. Stable nodular soft tissue density in the surgical bed measuring up to 1.2 cm. 4 mm calculus of the right kidney without obstruction. STOMACH AND BOWEL: Constipation. No obstruction. No mucosal thickening. PELVIS: APPENDIX: No findings to suggest acute appendicitis. BLADDER: Unremarkable. No stones. REPRODUCTIVE: Unremarkable as visualized. ABDOMEN and PELVIS: INTRAPERITONEAL SPACE: Unremarkable. No free air. No significant fluid collection. BONES/JOINTS: Stable ill-defined sclerotic lesion in the left pelvis. No acute fracture. No dislocation. SOFT TISSUES: Umbilical hernia. VASCULATURE: Unremarkable. No abdominal aortic aneurysm. LYMPH NODES: Unremarkable. No enlarged lymph nodes. CT/Abdomen/Pelvis without Cont IMPRESSION: Stable exam. Status post left nephrectomy. Reading Location: [facility]
== END | disposition home or self-care (01) ==
LOC: CT 18:57
PROVIDERS: PCP Family Medicine; Referring Provider Urology; Visit Provider Urology
DX: C64.2 Malignant neoplasm of left kidney, except renal pelvis (principal)
CPT/HCPCS: 74176

== ENCOUNTER → 2025-04-11 | Outpatient (CLI) | payer BC, SELFPAY ==
--- NOTE | 2025-04-11 16:33 | RAD_ITS ---
PROCEDURE: HIPS B/L MIN 2 VIEWS W/ PELVIS 04/11/2025 REASON FOR EXAM: PAIN TECHNIQUE: Procedure Code: RADHPELP Modality: DX Procedure: HIPS B/L MIN 2 VIEWS W/ PELVIS Laterality: Bilateral RAD/Hips B/L min 2 views w/ Pelvis IMPRESSION: No acute fracture or dislocations. Minimal degenerative changes of the bilatera l hips. No acute soft tissue abnormalities. Reading Location: [id number]
[2025-04-11 16:37] LABS: Mucous, Urine 0 SEEN /hpf (<or=2+); Squamous Epithelial Cells - UA 0 SEEN /hpf (0-5)
[2025-04-11 17:51] LABS: Hematocrit 49.8 % (40-54); Hemoglobin 16.7 g/dL (13.0-16.5); Immature Granulocytes Count 0.160 X10^3/uL (0.0-0.0); Mean Corp Hgb Conc 33.5 g/dL (32-36); Mean Corpuscular Volume 89.9 fL (80-94); Mean Platelet Vol. 12.0 fl (6.2-12.0); NRBC Flagged by Analyzer 0 % (0-5); Platelet Count 309 K/mm3 (150-450); RBC Distribution Width CV 13.2 % (11.6-14.6); RBC Distribution Width SD 43.3 fl (35.1-43.9); Red Blood Count 5.54 M/mm3 (4.6-6.2); White Blood Count 17.1 K/mm3 (4.4-11.0)
[2025-04-11 18:04] LABS: Color, Urine Yellow (Yellow); Glucose, Dipstick Normal (Normal); Ketone-Dipstick Negative (Negative); Leukocyte Esterase-Dipstick Negative /ul (Negative); Nitrite-Dipstick Negative (Negative); Occult Blood-Urine Negative /ul (Negative); Protein-Dipstick 30 mg/dl (Negative); Specific Gravity, Urine 1.020 (1.002-1.030); Urine Bilirubin Dipstick Negative (Negative)
[2025-04-11 18:26] LABS: AST(SGOT) 28 U/L (<=37); Alanine Aminotransfer ALT/SGPT 33 U/L (<=46); Albumin, Serum 4.4 g/dL (3.5-5.0); Alkaline Phosphatase 103 U/L (40-129); Anion Gap 14 (5-15); BUN 24 mg/dL (4-19); BUN/Creat Ratio 13.2 RATIO (10-20); Calcium,Total 9.0 mg/dL (7.6-11.0); Carbon Dioxide 24.2 mmol/L (21.0-32.0); Chloride 101 mmol/L (98-108); Globulin 3.4 g/dL (2.2-4.2); Glucose 116 mg/dL (70-99); Potassium 4.0 mmol/L (3.3-5.1); Vitamin D,25 Hydroxy 32.8 ng/mL (30-100)
[2025-04-11 18:27] LABS: Red Blood Cells-Urine 0-5 SEEN /hpf (0-5)
[2025-04-11 18:42] LABS: Creatinine, Urine (random) 388.00 mg/dL (39.00-259.00); Microalbumin,Random Urine 22.2 mg/L (<20 mg/L)
[2025-04-11 18:44] LABS: Cholesterol 125 mg/dL (<=200); Low Density Lipoprotein Calc. 76 mg/dL; Triglycerides 128 mg/dL; Very Low Density Lipoprotein 26 mg/dL (5-40); cholesterol:hdl ratio screen 4.81
[2025-04-18 11:08] LABS: Testosterone, % Free 2.49 % (1.50-4.20); Testosterone, Free 3.49 ng/dL (5.00-21.00)
== END | disposition home or self-care (01) ==
LOC: MTLAB 16:33
PROVIDERS: PCP Family Medicine; Referring Provider Family Medicine; Visit Provider Family Medicine
DX: E11.8 Type 2 diabetes mellitus with unspecified complications (principal); R53.83 Other fatigue; M25.551 Pain in right hip; M25.552 Pain in left hip
CPT/HCPCS: 36415; 73521; 80053; 80061; 81001; 82043; 82306; 82570; 84402; 84403; 85025